=== PATIENT | female | born 2000 | race Caucasian/White ===

== ENCOUNTER 2023-05-06 10:33 | Emergency (ER) | payer MEDICAID ==
--- NOTE | 2023-05-06 10:37 | ERPHSYRPT ---
- History of Present Illness Time Seen by Provider: 05/06/23 10:36 Source: patient Exam Limitations: no limitations Physician History: This is an overweight 22-year-old white female patient of Dr. Che who presents with intermittent coughing over the last 2 weeks. In the last few days her cough has become more constant. It is a moist cough and she states it is produ ctive with yellowish sputum. Patient was seen in [facility] yesterday and she stated that her COVID test was negative. Patient was told she had a viral illness and was given ibuprofen and Tessalon Perles as a cough suppressant. Patient's symptoms have continued to get worse. She does feel her heart racing a bit. Timing/Duration: week(s) (2), intermittent, worse Cough Quality/Degree: mild, productive cough, sputum (#) Possible Cause: no prior episodes Modifying Factors: Improves With: coughing Associated Symptoms: chest pain/soreness, cough (With coughing), sore throat, No shortness of breath Allergies/Adverse Reactions: No Known Drug Allergies Allergy (Verified 05/06/23 10:34) Home Medications: Benzonatate 1 cap PO BID PRN 05/06/23 [History] Clonidine HCl 0.1 mg [Clonidine 0.1 mg Tablet] 0.3 mg PO HS 05/06/23 [History] Semaglutide [Ozempic] 1 mg SQ WEEKLY 05/06/23 [History] Zonisamide [Zonegran] 1 cap PO BID 05/06/23 [History] desogestreL-ethinyl estradioL [Enskyce 28 Tablet] 1 tab PO DAILY 05/06/23 [History] Travel Risk - International Travel Have you traveled outside of the country in past 3 weeks: No - Coronavirus Screening Are you exhibiting any of the following symptoms?: Yes Symptoms: Cough: New Onset Close contact with a COVID-19 positive Pt in past 14-21 Days: No - Review of Systems Constitutional: Fever Eyes: No Symptoms Ears, Nose, & Throat: No Symptoms Respiratory: Cough Cardiac: No Symptoms Abdominal/Gastrointestinal: Nausea, Appetite Changes, No Abdominal Pain, No Vomiting, No Diarrhea, No Constipation Genitourinary Symptoms: No Symptoms Musculoskeletal: No Symptoms Skin: No Symptoms Neurological: No Symptoms Psychological: No Symptoms Endocrine: No Symptoms Hematologic/Lymphatic: No Symptoms Immunological/Allergic: No Symptoms All Other Systems: Reviewed and Negative - Past Medical History Pertinent Past Medical History: Yes - Past Surgical History Past Surgical History: Yes - Nursing Vital Signs Nursing Vital Signs: Initial Vital Signs Temperature 99.8 F 05/06/23 10:33 Pulse Rate 94 H 05/06/23 10:33 Respiratory Rate 20 05/06/23 10:33 Blood Pressure 93/73 05/06/23 10:33 O2 Sat by Pulse Oximetry 98 05/06/23 10:33 Pain Scale Pain Intensity 4 - Physical Exam General Appearance: mild distress, alert, anxiety, obese Eye Exam: PERRL/EOMI, eyes nml inspection Ears, Nose, Throat Exam: normal ENT inspection, moist mucous membranes Neck Exam: normal inspection, non-tender, supple, full range of motion Respiratory Exam: normal breath sounds, lungs clear, airway intact, No chest tenderness, No respiratory distress Cardiovascular Exam: tachycardia Gastrointestinal/Abdomen Exam: soft, normal bowel sounds, No tenderness Pelvic Exam: not done Rectal Exam: not done Back Exam: normal inspection, normal range of motion, No CVA tenderness, No vertebral tenderness Extremity Exam: normal inspection, normal range of motion, pelvis stable Neurologic Exam: alert, oriented x 3, cooperative, warper tender II-XII nml as tested, normal mood/affect, nml cerebellar function, nml station & gait, sensation nml Skin Exam: normal color, warm, diaphoresis Lymphatic Exam: No adenopathy SpO2 Interpretation: normal O2 Delivery: Room Air - Course Nursing assessment & vital signs reviewed: Yes EKG Interpreted by Me: RATE ([id number]), Sinus Tach, NORMAL AXIS, NORMAL INTERVALS, NORMAL QRS, Other (No acute ischemic changes on today's twelve-lead EKG.) Ordered Tests: Active Orders 24 hr Category Date Time Status EKG-ER Only STAT Care 05/06/23 10:58 Active IV Insertion STAT Care 05/06/23 10:58 Active Pulse Oximetry (ED) STAT Care 05/06/23 10:58 Active CHEST 1 VIEW (PORTABLE) Stat Exams 05/06/23 10:58 Completed CHEST WITH CONTRAST [CT] Stat Exams 05/06/23 12:57 Completed BLOOD CULTURE Stat Lab 05/06/23 11:50 Received CBC W DIFF Stat Lab 05/06/23 11:40 Completed CMP Stat Lab 05/06/23 11:40 Completed CULTURE,URINE Stat Lab 05/06/23 11:11 Received D-DIMER QUANTITATIVE Stat Lab 05/06/23 11:40 Completed HCG QUALITATIVE, SERUM Stat Lab 05/06/23 11:40 Completed Lactic Acid Stat Lab 05/06/23 11:09 Completed Lactic Acid Stat Lab 05/06/23 13:16 Received MONO SCREEN Stat Lab 05/06/23 11:40 Completed NT PRO BNPII Stat Lab 05/06/23 12:08 Completed TROPONIN Q4H Lab 05/06/23 12:08 Completed TROPONIN Q4H Lab 05/06/23 16:45 Ordered TROPONIN Q4H Lab 05/06/23 20:45 Ordered UA W/RFX UR CULTURE Stat Lab 05/06/23 11:11 Completed Medication Summary Discontinued Medications Generic Name Dose Route Start Last Admin Trade Name Freq PRN Reason Stop Dose Admin Hydrocodone Bitart/Acetaminophen 10 ml 05/06/23 11:14 05/06/23 11:32 Hydrocodone/Acetaminophen 5 Ml Udcup PO 05/06/23 11:15 10 ml STAT STA Administration Hydrocodone Bitart/Acetaminophen Confirm 05/06/23 11:27 Hydrocodone/Acetaminophen 5 Ml Udcup Administered 05/06/23 11:28 Dose 10 ml .ROUTE .STK-MED ONE Methylprednisolone Sodium 0 mg 05/06/23 11:14 05/06/23 11:29 Succinate 125 mg/ Sterile IV 05/06/23 11:15 125 mg Water 2 ml STAT ONE Administration Sodium Chloride 1,000 mls @ 999 mls/hr 05/06/23 10:58 05/06/23 12:17 Sodium Chloride 0.9% 1000 Ml IV 05/06/23 11:58 Infused .Q1H1M STA Infusion Sodium Chloride Confirm 05/06/23 11:13 Sodium Chloride 0.9% 1000 Ml Administered 05/06/23 11:14 Dose 1,000 mls @ ud .ROUTE .STK-MED ONE Sodium Chloride 1,000 mls @ 999 mls/hr 05/06/23 12:15 05/06/23 13:35 Sodium Chloride 0.9% 1000 Ml IV 05/06/23 13:15 Infused .Q1H1M STA Infusion Sodium Chloride Confirm 05/06/23 12:20 Sodium Chloride 0.9% 1000 Ml Administered 05/06/23 12:21 Dose 1,000 mls @ ud .ROUTE .STK-MED ONE Methylprednisolone Sodium Succinate Confirm 05/06/23 11:26 Methylprednis Sod Succ 125 Mg/2 Ml Vial Administered 05/06/23 11:27 Dose 125 mg .ROUTE .STK-MED ONE Potassium Chloride 20 meq 05/06/23 12:56 05/06/23 13:45 Potassium Chloride Tab 10 Meq Tab PO 05/06/23 12:57 20 meq STAT ONE Administration Potassium Chloride Confirm 05/06/23 13:42 Potassium Chloride Tab 10 Meq Tab Administered 05/06/23 13:43 Dose 20 meq PO .STK-MED ONE Sterile Water Confirm 05/06/23 11:26 Water For Injection,Sterile 10 Ml Vial Administered 05/06/23 11:27 Dose 10 ml IJ .STK-MED ONE Lab/Rad Data: Laboratory Result Diagrams 05/06/23 11:40 05/06/23 11:40 Laboratory Results 05/06/23 05/06/23 05/06/23 Range/Units 12:08 11:56 11:55 WBC (4.0-10.5) x10^3/uL RBC (4.1-5.4) x10^6/uL Hgb (12.0-16.0) g/dL Hct (35-47) % MCV (78-100) fL MCH (26-32) pg MCHC (32-36) g/dL RDW (11.5-14.0) % Plt Count (150-450) x10^3/uL MPV (7.5-11.0) fL Gran % (36.0-66.0) % Immature Gran % (Auto) (0.00-0.4) % Nucleat RBC Rel Count (0.00-0.1) % Eos # (Auto) (0-0.5) x10^3/uL Immature Gran # (Auto) (0.00-0.03) x10^3u/L Absolute Lymphs (auto) (1.0-4.6) x10^3/uL Absolute Monos (auto) (0.0-1.3) x10^3/uL Absolute Nucleated RBC (0.00-0.01) x10^3u/L Lymphocytes % (24.0-44.0) % Monocytes % (0.0-12.0) % Eosinophils % (0.00-5.0) % Basophils % (0.0-0.4) % Absolute Granulocytes (1.4-6.9) x10^3/uL Basophils # (0-0.4) x10^3/uL D-Dimer (0.0-0.50) mg/L Sodium (137-145) mmol/L Potassium (3.5-5.1) mmol/L Chloride (98-107) mmol/L Carbon Dioxide (22-30) mmol/L Anion Gap (5-15) MEQ/L BUN (7-17) mg/dL Creatinine (0.52-1.04) mg/dL Estimated GFR ML/MIN Glucose (74-106) mg/dL Lactic Acid (0.4-2.0) Calcium (8.4-10.2) mg/dL Total Bilirubin (0.2-1.3) mg/dL AST (14-36) U/L ALT (0-35) U/L Alkaline Phosphatase (38-126) U/L Troponin I < 0.012 (0.000-0.034) ng/mL NT-Pro-B Natriuret Pep 50.9 (<300) pg/mL Serum Total Protein (6.3-8.2) g/dL Albumin (3.5-5.0) g/dL Serum HCG, Qual (NEGATIVE) Urine Color (Yellow) Urine Appearance (Clear) Urine pH (4.6-8.0) Ur Specific [place] (1.005-1.030) Urine Protein (Negative) Urine Glucose (UA) (Negative) mg/dL Urine Ketones (Negative) Urine Blood (Negative) Urine Nitrite (Negative) Urine Bilirubin (Negative) Urine Urobilinogen (0.2) mg/dL Ur Leukocyte Esterase (Negative) U Hyaline Cast (Auto) (0-2) /LPF Urine Microscopic RBC (0-5) /HPF Urine Microscopic WBC (0-5) /HPF Ur Epithelial Cells (None Seen) /HPF Urine Bacteria (None Seen) /HPF Urine Culture Reflexed (NO) Monoscreen (NEGATIVE) Influenza Type A Ag POSITIVE (NEGATIVE) Influenza Type B Ag NEGATIVE (NEGATIVE) RSV (PCR) NEGATIVE (NEGATIVE) SARS-CoV-2 (PCR) NEGATIVE (NEGATIVE) Group A Strep Antibody NOT DETECTED (NEGATIVE) 05/06/23 05/06/23 05/06/23 Range/Units 11:40 11:40 11:40 WBC (4.0-10.5) x10^3/uL RBC (4.1-5.4) x10^6/uL Hgb (12.0-16.0) g/dL Hct (35-47) % MCV (78-100) fL MCH (26-32) pg MCHC (32-36) g/dL RDW (11.5-14.0) % Plt Count (150-450) x10^3/uL MPV (7.5-11.0) fL Gran % (36.0-66.0) % Immature Gran % (Auto) (0.00-0.4) % Nucleat RBC Rel Count (0.00-0.1) % Eos # (Auto) (0-0.5) x10^3/uL Immature Gran # (Auto) (0.00-0.03) x10^3u/L Absolute Lymphs (auto) (1.0-4.6) x10^3/uL Absolute Monos (auto) (0.0-1.3) x10^3/uL Absolute Nucleated RBC (0.00-0.01) x10^3u/L Lymphocytes % (24.0-44.0) % Monocytes % (0.0-12.0) % Eosinophils % (0.00-5.0) % Basophils % (0.0-0.4) % Absolute Granulocytes (1.4-6.9) x10^3/uL Basophils # (0-0.4) x10^3/uL D-Dimer 1.24 H* (0.0-0.50) mg/L Sodium 136 L (137-145) mmol/L Potassium 3.1 L (3.5-5.1) mmol/L Chloride 103 (98-107) mmol/L Carbon Dioxide 19 L (22-30) mmol/L Anion Gap 16.7 H (5-15) MEQ/L BUN 9 (7-17) mg/dL Creatinine 0.73 (0.52-1.04) mg/dL Estimated GFR 119.9 ML/MIN Glucose 134 H (74-106) mg/dL Lactic Acid (0.4-2.0) Calcium 9.1 (8.4-10.2) mg/dL Total Bilirubin 0.50 (0.2-1.3) mg/dL AST 28 (14-36) U/L ALT 25 (0-35) U/L Alkaline Phosphatase 86 (38-126) U/L Troponin I (0.000-0.034) ng/mL NT-Pro-B Natriuret Pep (<300) pg/mL Serum Total Protein 8.0 (6.3-8.2) g/dL Albumin 4.2 (3.5-5.0) g/dL Serum HCG, Qual NEGATIVE (NEGATIVE) Urine Color (Yellow) Urine Appearance (Clear) Urine pH (4.6-8.0) Ur Specific [place] (1.005-1.030) Urine Protein (Negative) Urine Glucose (UA) (Negative) mg/dL Urine Ketones (Negative) Urine Blood (Negative) Urine Nitrite (Negative) Urine Bilirubin (Negative) Urine Urobilinogen (0.2) mg/dL Ur Leukocyte Esterase (Negative) U Hyaline Cast (Auto) (0-2) /LPF Urine Microscopic RBC (0-5) /HPF Urine Microscopic WBC (0-5) /HPF Ur Epithelial Cells (None Seen) /HPF Urine Bacteria (None Seen) /HPF Urine Culture Reflexed (NO) Monoscreen POSITIVE A (NEGATIVE) Influenza Type A Ag (NEGATIVE) Influenza Type B Ag (NEGATIVE) RSV (PCR) (NEGATIVE) SARS-CoV-2 (PCR) (NEGATIVE) Group A Strep Antibody (NEGATIVE) 05/06/23 05/06/23 05/06/23 Range/Units 11:40 11:11 11:09 WBC 7.5 (4.0-10.5) x10^3/uL RBC 4.99 (4.1-5.4) x10^6/uL Hgb 13.3 (12.0-16.0) g/dL Hct 40.7 (35-47) % MCV 81.6 (78-100) fL MCH 26.7 (26-32) pg MCHC 32.7 (32-36) g/dL RDW 13.9 (11.5-14.0) % Plt Count 182 (150-450) x10^3/uL MPV 9.4 (7.5-11.0) fL Gran % 74.5 H (36.0-66.0) % Immature Gran % (Auto) 0.3 (0.00-0.4) % Nucleat RBC Rel Count 0.0 (0.00-0.1) % Eos # (Auto) 0 (0-0.5) x10^3/uL Immature Gran # (Auto) 0.02 (0.00-0.03) x10^3u/L Absolute Lymphs (auto) 1.16 (1.0-4.6) x10^3/uL Absolute Monos (auto) 0.72 (0.0-1.3) x10^3/uL Absolute Nucleated RBC 0.00 (0.00-0.01) x10^3u/L Lymphocytes % 15.5 L (24.0-44.0) % Monocytes % 9.6 (0.0-12.0) % Eosinophils % 0.0 (0.00-5.0) % Basophils % 0.1 (0.0-0.4) % Absolute Granulocytes 5.57 (1.4-6.9) x10^3/uL Basophils # 0.01 (0-0.4) x10^3/uL D-Dimer (0.0-0.50) mg/L Sodium (137-145) mmol/L Potassium (3.5-5.1) mmol/L Chloride (98-107) mmol/L Carbon Dioxide (22-30) mmol/L Anion Gap (5-15) MEQ/L BUN (7-17) mg/dL Creatinine (0.52-1.04) mg/dL Estimated GFR ML/MIN Glucose (74-106) mg/dL Lactic Acid 2.8 H (0.4-2.0) Calcium (8.4-10.2) mg/dL Total Bilirubin (0.2-1.3) mg/dL AST (14-36) U/L ALT (0-35) U/L Alkaline Phosphatase (38-126) U/L Troponin I (0.000-0.034) ng/mL NT-Pro-B Natriuret Pep (<300) pg/mL Serum Total Protein (6.3-8.2) g/dL Albumin (3.5-5.0) g/dL Serum HCG, Qual (NEGATIVE) Urine Color Dark Yellow A (Yellow) Urine Appearance Cloudy A (Clear) Urine pH 5.5 (4.6-8.0) Ur Specific [place] >=1.030 A (1.005-1.030) Urine Protein 30 (Negative) Urine Glucose (UA) Negative (Negative) mg/dL Urine Ketones Trace A (Negative) Urine Blood Negative (Negative) Urine Nitrite Negative (Negative) Urine Bilirubin Negative (Negative) Urine Urobilinogen 1.0 A (0.2) mg/dL Ur Leukocyte Esterase Negative (Negative) U Hyaline Cast (Auto) 3-5 A (0-2) /LPF Urine Microscopic RBC 6-10 A (0-5) /HPF Urine Microscopic WBC 6-10 A (0-5) /HPF Ur Epithelial Cells Many A (None Seen) /HPF Urine Bacteria Many A (None Seen) /HPF Urine Culture Reflexed YES (NO) Monoscreen (NEGATIVE) Influenza Type A Ag (NEGATIVE) Influenza Type B Ag (NEGATIVE) RSV (PCR) (NEGATIVE) SARS-CoV-2 (PCR) (NEGATIVE) Group A Strep Antibody (NEGATIVE) - Progress Progress: improved, re-examined Air Movement: good Progress Note: 05/06/23 11:20 This patient's medical issue is 1 of moderate complexity. The level of complexity in the workup performed is based on review of the patient's past medical history, review the patient's medication list, reviewed patient's drug allergy list, history of present illness and physical findings on examination. This patient's medical workup includes placement of intravenous line, infusion of normal saline solution, infusion of Zofran 4 mg, infusion of Solu-Medrol 125 mg, hydrocodone elixir to help suppress her cough, CBC, CMP, repeat viral swabs, monotest and group A strep test. Will also perform a chest x-ray and obtain a urinalysis. We also have a D-dimer to drawn. 05/06/23 11:31 Chest x-ray was interpreted by the radiologist and I reviewed the impression. There is no evidence of any acute cardiopulmonary process. 05/06/23 14:50 CT scan of the chest with contrast was interpreted by the radiologist. I reviewed the impression. The impression states suboptimal test secondary to IV infiltration of contrast. Radiologist states in his impression that there is no obvious pulmonary embolus. No other acute cardio or pulmonary process present 05/06/23 14:56 Obtained clarification from our radiologist, Dr. Dudley, he states that although this test was suboptimal he can confidently say there is no obvious pulmonary embolus with the contrast that did reach the site. There is no need to repeat the study Blood Culture(s) Obtained: Yes Counseled pt/family regarding: lab results, diagnosis, rad results Medical Desision Making - Diagnostic Testing Diagnostic test were ordered, analyzed, and reviewed by me: Yes Radiological Interpretation: Reviewed by me, Teleradiologist Report - Risk of complications The pt has a mod risk of morbidity or mortality based on: Need for prescription drug management - Departure Departure Disposition: Home Clinical Impression: Mononucleosis, Influenza A H1N1 infection Condition: Stable Critical Care Time: No Referrals: SANNA CHE MD [Primary Care Provider] - Follow up/PCP as directed Additional Instructions: Drink plenty of fluids before advancing the diet. Add ibuprofen 600 mg orally 3 times a day with food for the next 3 to 4 days to help with aches and pain control. Take your medications as prescribed. Prescriptions: Hydrocodone/Acetaminophen [Hydrocodone-Acetamn 7.5-325/15] 10 ml PO Q8H PRN #120 ml MDD 30 ml PRN Reason: Cough
[2023-05-06] MEDS ORDERED: Sodium Chloride 0.9% 1000 ML 1,000 ML IV STA ×2 (10:58→12:15)
[2023-05-06] MEDS ORDERED: Sodium Chloride 0.9% 1000 ML 1,000 ML ONE ×2 (11:13→12:20)
[2023-05-06] MEDS ORDERED: solu-MEDROL 125 MG, Sterile H2O 10 ml 2 ML IV ONE ×2 (11:14)
[2023-05-06] MEDS ORDERED: HYDROCODONE-ACETAMIN 2.5-108/5 ML SOLUTION PO STA (11:14)
--- NOTE | 2023-05-06 11:21 | XRAY ---
Indication: Cough 2 weeks. Comparison: None Portable chest demonstrates normal heart, lungs, bony thorax.
[2023-05-06] MEDS ORDERED: solu-MEDROL ONE (11:26)
[2023-05-06] MEDS ORDERED: Sterile H2O 10 ml IJ ONE (11:26)
[2023-05-06] MEDS ORDERED: HYDROCODONE-ACETAMIN 2.5-108/5 ML SOLUTION ONE (11:27)
[2023-05-06 11:56] LABS: Appearance Cloudy (Clear); Bacteria Many /HPF (None Seen); Bilirubin Negative (Negative); Blood Negative (Negative); Glucose, Urine Negative (Negative); Ketones Trace (Negative); Leukocyte Esterase Negative (Negative); Nitrite Negative (Negative); Ph 5.5 (4.6-8.0); Protein,Urine Dip 30 (Negative); Specific Gravity >=1.030 (1.005-1.030)
[2023-05-06 11:58] LABS: Epithelial Cells Many /HPF (None Seen)
[2023-05-06 11:59] LABS: ADD URINE CULTURE? YES (NO)
[2023-05-06 12:01] LABS: Absolute Neutrophil Ct (ANC) 5.57 x10^3/uL (1.4-6.9); BASOPHIL % 0.1 % (0.0-0.4); Basophil (Absolute #) 0.01 x10^3/uL (0-0.4); Eosinophil (Absolute #) 0 x10^3/uL (0-0.5); Hematocrit 40.7 % (35-47); Hemoglobin 13.3 g/dL (12.0-16.0); IMMATURE GRAN # 0.02 x10^3u/L (0.00-0.03); IMMATURE GRAN % 0.3 % (0.00-0.4); Lymphocyte (Absolute #) 1.16 x10^3/uL (1.0-4.6); Lymphocytes % 15.5 % (24.0-44.0); Mean Cell Volume 81.6 fL (78-100); Mean Corpuscular Hemoglobin 26.7 pg (26-32); Mean Corpuscular Hgb Concent. 32.7 g/dL (32-36); Mean Platelet Volume 9.4 fL (7.5-11.0); Monocyte (Absolute #) 0.72 x10^3/uL (0.0-1.3); Monocytes % 9.6 % (0.0-12.0); Neutrophil % 74.5 % (36.0-66.0); Platelet Count 182 x10^3/uL (150-450); Red Blood Count 4.99 x10^6/uL (4.1-5.4); Red Cell Distribution Width 13.9 % (11.5-14.0); White Blood Count 7.5 x10^3/uL (4.0-10.5)
[2023-05-06 12:10] LABS: ALBUMIN 4.2 g/dL (3.5-5.0); ANION GAP 16.7 MEQ/L (5-15); BILIRUBIN,TOTAL 0.5 mg/dL (0.2-1.3); Calcium 9.1 mg/dL (8.4-10.2); Creatinine 1 0.73 mg/dL (0.52-1.04); EST GLOMERULAR FILTRATION RATE 119.9 ML/MIN; Potassium 3.1 mmol/L (3.5-5.1)
[2023-05-06 12:18] LABS: HCG SERUM TEST NEGATIVE (NEGATIVE)
[2023-05-06 12:25] VITALS: TEMP 97.4
[2023-05-06 12:33] VITALS: O2SAT 97
[2023-05-06 12:44] LABS: INFLUENZA B NEGATIVE (NEGATIVE); RESPIRATORY SYNCTIAL VIRUS NEGATIVE (NEGATIVE); SARS-CoV-2 Xpert Express NEGATIVE (NEGATIVE)
[2023-05-06 12:46] LABS: INFLUENZA A POSITIVE (NEGATIVE)
[2023-05-06] MEDS ORDERED: Klor Con PO ONE ×2 (12:56→13:42)
[2023-05-06 13:09] LABS: NT PRO BNPII 50.9 pg/mL (<300); TROPONIN < 0.012 ng/mL (0.000-0.034)
[2023-05-06 14:01] VITALS: RESP 20
--- NOTE | 2023-05-06 14:04 | XRAY ---
Indication: Chest pain and cough. Elevated d-dimer. Multiple contiguous axial images obtained through the chest using 80 cc Isovue 370 contrast and PE protocol. Comparison: None Suboptimal opacification of the pulmonary arteries limits evaluation for pulmonary embolus. No obvious pulmonary embolus. Heart is not enlarged. Aorta is normal in course and caliber. No pathologic mediastinal/hilar lymphadenopathy. Lungs inflated and clear. Bony thorax intact. Limited upper abdomen unremarkable. Impression: 1. Pulmonary embolus evaluation limited due to suboptimal contrast opacification. dairy manufacturing technologist reports IV site infiltrated during injection. No obvious pulmonary embolus. 2. Remaining CT chest with contrast exam is normal.
[2023-05-06 15:03] VITALS: BP 108/69; PULSE 85
== END 2023-05-06 15:09 | disposition home or self-care (01) ==
LOC: ED 10:33
DX: B27.90 Infectious mononucleosis, unspecified without complication (principal); J10.1 Influenza due to other identified influenza virus with other respiratory manifestations; R05.1 Acute cough; R09.3 Abnormal sputum; Z79.85 Long-term (current) use of injectable non-insulin antidiabetic drugs; Z79.891 Long term (current) use of opiate analgesic; Z79.899 Other long term (current) drug therapy
CPT/HCPCS: 0241U; 36000; 36415; 71045; 71260; 80053; 81001; 83605; 83880; 84484; 84703; 85025; 85379; 86308; 87040; 87086; 87651; 93005; 94760; 96374; 99284; J2930; A9270-GY

== ENCOUNTER 2023-06-29 04:10 | Emergency (ER) | payer MEDICAID ==
[2023-06-29 04:37] VITALS: TEMP 97.3
[2023-06-29 04:57] LABS: HCG URINE TEST NEGATIVE (NEGATIVE)
--- NOTE | 2023-06-29 04:59 | ERPHSYRPT ---
- History of Present Illness Time Seen by Provider: 06/29/23 04:40 Historian: patient Exam Limitations: no limitations Patient Subjective Stated Complaint: pt states that at approx 2000 last night she started having epigastric abdominal pain that is intermittent (very freq uent), described as burning/ cramping, and radiates slightly to right flank. reports LBM 06/27/23 and was "black" in color. Triage Nursing Assessment: pt ambulated into room 7 independently with slow steady gait after standing on scales for weight acquisition and to bathroom to provide a urine specimen for lab testing. pt is alert and oriented times three, able to speak in complete sentences, able to move all extremities, and with resp even and unlabored. skin is warm, pink, dry, and intact. abd is obese, soft, nontender to palpation, nondistended, and with positive bowel sounds in all quadrants. pt with history of GERD and Crohn's but reports this pain is different from those. pt scheduled to have a CT scan later today in [place] per her GI MD. denies n/v, diarrhea, cp, sob, difficulty breathing, lightheadedness, dizziness, difficulty with urination or bowel elimination with exception of last stool being "black" in color. Physician History: 22yo f presents for abdominal pain that started 8hrs prior to presentation. Pt states she has had epigastric pain intermittently for the past 6 months, states it started around 8pm and has been worse than her baseline pain which is why she came to the ED. Pt reports associated nausea but denies vomiting or diarrhea. Pt does report 1 episode of dark stool 2d ago but otherwise has had no abnormal stools. Pt has been seeing GI specialist and was supposed to have a CT done at [place] today for w/u of this abdominal pain. Pt has hx of Crohn's disease, is currently taking injectable GLP-1 medication. Pt denies cp, soa, GARG, fevers, recent sick contacts. Timing/Duration: yesterday, hour(s) (8), constant, gradual onset Activities at Onset: none Quality: burning Abdominal Pain Onset Location: epigastric Pain Radiation: no radiation Severity of Pain-Max: moderate Severity of Pain-Current: moderate Modifying Factors: Improves With: nothing Associated Symptoms: denies symptoms Previous symptoms: same symptoms as today Body Map: 1 - epigastric pain Allergies/Adverse Reactions: No Known Drug Allergies Allergy (Verified 06/29/23 04:17) Home Medications: Clonidine HCl 0.1 mg [Clonidine 0.1 mg Tablet] 0.3 mg PO HS 05/06/23 [History] Semaglutide [Ozempic] 1 mg SQ WEEKLY 05/06/23 [History] Zonisamide [Zonegran] 1 cap PO BID 05/06/23 [History] desogestreL-ethinyl estradioL [Enskyce 28 Tablet] 1 tab PO DAILY 05/06/23 [History] Sertraline HCl 100 mg PO HS 06/29/23 [History] Hx Tetanus, Diphtheria Vaccination/Date Given: Yes Hx Influenza Vaccination/Date Given: No Hx Pneumococcal Vaccination/Date Given: No Immunizations Up to Date: Yes Travel Risk - International Travel Have you traveled outside of the country in past 3 weeks: No - Coronavirus Screening Are you exhibiting any of the following symptoms?: No Close contact with a COVID-19 positive Pt in past 14-21 Days: No - Vaccine Status Have you recieved a Covid-19 vaccination: No - Review of Systems Constitutional: No Symptoms Respiratory: No Symptoms Cardiac: No Symptoms Abdominal/Gastrointestinal: Abdominal Pain, Nausea, No Vomiting, No Diarrhea, No Constipation, No Hematemesis, No Hematochezia, No Melena, No Appetite Changes Genitourinary Symptoms: No Symptoms, No Dysuria, No Frequency, No Hematuria, No Flank Pain - Past Medical History Pertinent Past Medical History: Yes Neurological History: No Pertinent History ENT History: No Pertinent History Cardiac History: No Pertinent History Respiratory History: No Pertinent History Endocrine Medical History: No Pertinent History Musculoskeletal History: No Pertinent History GI Medical History: Crohns Disease, GERD History: No Pertinent History Psycho-Social History: Depression, Other Female Reproductive Disorders: No Pertinent History Other Medical History: GI specialist in [place]. ADHD. Prediabetic - Past Surgical History Past Surgical History: Yes Neuro Surgical History: No Pertinent History Cardiac: No Pertinent History Respiratory: No Pertinent History Gastrointestinal: No Pertinent History Genitourinary: No Pertinent History Musculoskeletal: No Pertinent History Female Surgical History: No Pertinent History Other Surgical History: Toe surgery - Social History Smoking Status: Former smoker Exposure to second hand smoke: No Drug Use: none Patient Lives Alone: No - Female History Hx Last Menstrual Period: 06/17/23 Hx Now: No - Nursing Vital Signs Nursing Vital Signs: Initial Vital Signs Pulse Rate 81 06/29/23 04:20 Respiratory Rate 18 06/29/23 04:20 Blood Pressure 127/82 06/29/23 04:20 O2 Sat by Pulse Oximetry 97 06/29/23 04:20 Pain Scale Pain Intensity 4 - Physical Exam General Appearance: no apparent distress, alert Respiratory Exam: normal breath sounds, lungs clear, No respiratory distress Cardiovascular Exam: regular rate/rhythm, normal heart sounds, normal peripheral pulses Gastrointestinal/Abdomen Exam: soft, normal bowel sounds, No tenderness, No distention, No guarding, No rebound SpO2 Interpretation: normal SpO2: 96 O2 Delivery: Room Air Ordered Tests: Active Orders 24 hr Category Date Time Status IV Insertion STAT Care 06/29/23 04:47 Active ABDOMEN AND PELVIS W CONTRAST [CT] Stat Exams 06/29/23 04:48 Completed CBC W DIFF Stat Lab 06/29/23 05:00 Completed CMP Stat Lab 06/29/23 05:00 Completed CULTURE,URINE Stat Lab 06/29/23 04:52 Received HCG QUALITATIVE, URINE Stat Lab 06/29/23 04:30 Completed LIPASE Stat Lab 06/29/23 05:00 Completed UA W/RFX UR CULTURE Stat Lab 06/29/23 04:52 Completed Medication Summary Discontinued Medications Generic Name Dose Route Start Last Admin Trade Name Freq PRN Reason Stop Dose Admin Sodium Chloride 1,000 mls @ 999 mls/hr 06/29/23 04:47 06/29/23 06:10 Sodium Chloride 0.9% 1000 Ml IV 06/29/23 05:47 Infused .Q1H1M STA Infusion Sodium Chloride Confirm 06/29/23 05:02 Sodium Chloride 0.9% 1000 Ml Administered 06/29/23 05:03 Dose 1,000 mls @ ud .ROUTE .STK-MED ONE Morphine Sulfate 2 mg 06/29/23 04:47 06/29/23 05:06 Morphine Sulfate 2 Mg/Ml Inj IV 06/29/23 04:48 2 mg STAT ONE Administration Morphine Sulfate Confirm 06/29/23 05:02 Morphine Sulfate 2 Mg/Ml Inj Administered 06/29/23 05:03 Dose 2 mg .ROUTE .STK-MED ONE Ondansetron HCl 4 mg 06/29/23 04:47 06/29/23 05:06 Ondansetron Hcl 4 Mg/2 Ml Vial IV 06/29/23 04:48 4 mg STAT ONE Administration Ondansetron HCl Confirm 06/29/23 05:02 Ondansetron Hcl 4 Mg/2 Ml Vial Administered 06/29/23 05:03 Dose 4 mg .ROUTE .STK-MED ONE Lab/Rad Data: Laboratory Result Diagrams 06/29/23 05:00 06/29/23 05:00 Laboratory Results 06/29/23 06/29/23 06/29/23 Range/Units 05:00 05:00 04:52 WBC 8.9 (4.0-10.5) x10^3/uL RBC 4.58 (4.1-5.4) x10^6/uL Hgb 12.1 (12.0-16.0) g/dL Hct 37.4 (35-47) % MCV 81.7 (78-100) fL MCH 26.4 (26-32) pg MCHC 32.4 (32-36) g/dL RDW 13.5 (11.5-14.0) % Plt Count 200 (150-450) x10^3/uL MPV 9.1 (7.5-11.0) fL Gran % 68.8 H (36.0-66.0) % Immature Gran % (Auto) 0.2 (0.00-0.4) % Nucleat RBC Rel Count 0.0 (0.00-0.1) % Eos # (Auto) 0.08 (0-0.5) x10^3/uL Immature Gran # (Auto) 0.02 (0.00-0.03) x10^3u/L Absolute Lymphs (auto) 2.02 (1.0-4.6) x10^3/uL Absolute Monos (auto) 0.63 (0.0-1.3) x10^3/uL Absolute Nucleated RBC 0.00 (0.00-0.01) x10^3u/L Lymphocytes % 22.6 L (24.0-44.0) % Monocytes % 7.1 (0.0-12.0) % Eosinophils % 0.9 (0.00-5.0) % Basophils % 0.4 (0.0-0.4) % Absolute Granulocytes 6.13 (1.4-6.9) x10^3/uL Basophils # 0.04 (0-0.4) x10^3/uL Sodium 133 L (137-145) mmol/L Potassium 3.6 (3.5-5.1) mmol/L Chloride 103 (98-107) mmol/L Carbon Dioxide 22 (22-30) mmol/L Anion Gap 11.8 (5-15) MEQ/L BUN 12 (7-17) mg/dL Creatinine 0.70 (0.52-1.04) mg/dL Estimated GFR 126.1 ML/MIN Glucose 116 H (74-106) mg/dL Calcium 9.7 (8.4-10.2) mg/dL Total Bilirubin 0.50 (0.2-1.3) mg/dL AST 22 (14-36) U/L ALT 18 (0-35) U/L Alkaline Phosphatase 69 (38-126) U/L Serum Total Protein 7.4 (6.3-8.2) g/dL Albumin 4.1 (3.5-5.0) g/dL Lipase 118 (23-300) U/L Urine Color Yellow (Yellow) Urine Appearance Cloudy A (Clear) Urine pH 6.5 (4.6-8.0) Ur Specific [place] 1.015 (1.005-1.030) Urine Protein Negative (Negative) Urine Glucose (UA) Negative (Negative) mg/dL Urine Ketones Negative (Negative) Urine Blood Negative (Negative) Urine Nitrite Negative (Negative) Urine Bilirubin Negative (Negative) Urine Urobilinogen 0.2 (0.2) mg/dL Ur Leukocyte Esterase Trace A (Negative) U Hyaline Cast (Auto) NONE SEEN (0-2) /LPF Urine Microscopic RBC 0-2 (0-5) /HPF Urine Microscopic WBC 6-10 A (0-5) /HPF Ur Epithelial Cells Few (None Seen) /HPF Urine Bacteria Few A (None Seen) /HPF Urine Culture Reflexed YES (NO) Urine HCG, Qual (NEGATIVE) 06/29/23 Range/Units 04:30 WBC (4.0-10.5) x10^3/uL RBC (4.1-5.4) x10^6/uL Hgb (12.0-16.0) g/dL Hct (35-47) % MCV (78-100) fL MCH (26-32) pg MCHC (32-36) g/dL RDW (11.5-14.0) % Plt Count (150-450) x10^3/uL MPV (7.5-11.0) fL Gran % (36.0-66.0) % Immature Gran % (Auto) (0.00-0.4) % Nucleat RBC Rel Count (0.00-0.1) % Eos # (Auto) (0-0.5) x10^3/uL Immature Gran # (Auto) (0.00-0.03) x10^3u/L Absolute Lymphs (auto) (1.0-4.6) x10^3/uL Absolute Monos (auto) (0.0-1.3) x10^3/uL Absolute Nucleated RBC (0.00-0.01) x10^3u/L Lymphocytes % (24.0-44.0) % Monocytes % (0.0-12.0) % Eosinophils % (0.00-5.0) % Basophils % (0.0-0.4) % Absolute Granulocytes (1.4-6.9) x10^3/uL Basophils # (0-0.4) x10^3/uL Sodium (137-145) mmol/L Potassium (3.5-5.1) mmol/L Chloride (98-107) mmol/L Carbon Dioxide (22-30) mmol/L Anion Gap (5-15) MEQ/L BUN (7-17) mg/dL Creatinine (0.52-1.04) mg/dL Estimated GFR ML/MIN Glucose (74-106) mg/dL Calcium (8.4-10.2) mg/dL Total Bilirubin (0.2-1.3) mg/dL AST (14-36) U/L ALT (0-35) U/L Alkaline Phosphatase (38-126) U/L Serum Total Protein (6.3-8.2) g/dL Albumin (3.5-5.0) g/dL Lipase (23-300) U/L Urine Color (Yellow) Urine Appearance (Clear) Urine pH (4.6-8.0) Ur Specific [place] (1.005-1.030) Urine Protein (Negative) Urine Glucose (UA) (Negative) mg/dL Urine Ketones (Negative) Urine Blood (Negative) Urine Nitrite (Negative) Urine Bilirubin (Negative) Urine Urobilinogen (0.2) mg/dL Ur Leukocyte Esterase (Negative) U Hyaline Cast (Auto) (0-2) /LPF Urine Microscopic RBC (0-5) /HPF Urine Microscopic WBC (0-5) /HPF Ur Epithelial Cells (None Seen) /HPF Urine Bacteria (None Seen) /HPF Urine Culture Reflexed (NO) Urine HCG, Qual NEGATIVE (NEGATIVE) - Progress Progress: improved Progress Note: 06/29/23 05:02 pt given 2mg morpine IV, 4mg zofran 06/29/23 06:11 pt resting comfortably, pain significantly improved CT results pending, labs grossly normal 06/29/23 06:15 CT showed: No significant abnormality was detected in CT Abdomen and pelvis examination 06/29/23 06:15 Plan for dc home w/ close PCP f/u, recommend pt does not obtain scheduled CT scan that was planned for today, should keep f/u w/ GI Counseled pt/family regarding: lab results, diagnosis, need for follow-up, rad results Medical Desision Making - Diagnostic Testing Diagnostic test were ordered, analyzed, and reviewed by me: Yes Radiological Interpretation: Reviewed by me, Teleradiologist Report - Risk of complications Minimal Risk: Minimal risk of morbidity - Departure Departure Disposition: Extended Care Facility Clinical Impression: Epigastric pain, Nausea Condition: Stable Critical Care Time: No Referrals: SANNA CHE MD [Primary Care Provider] - Follow up/PCP as directed Additional Instructions: manage symptoms w/ tylenol, antacids as needed follow up w/ PCP this week Do not recommend obtaining CT today at [place] Keep follow up appointment with GI doc return to ED if - sx worsen, unable to tolerate oral intake, have bloody vomit or stools
[2023-06-29 05:01] LABS: Appearance Cloudy (Clear); Bacteria Few /HPF (None Seen); Bilirubin Negative (Negative); Blood Negative (Negative); Epithelial Cells Few /HPF (None Seen); Glucose, Urine Negative (Negative); Hyaline Casts NONE SEEN /LPF (0-2); Ketones Negative (Negative); Leukocyte Esterase Trace (Negative); Nitrite Negative (Negative); Ph 6.5 (4.6-8.0); Protein,Urine Dip Negative (Negative); RBC 0-2 /HPF (0-5); Specific Gravity 1.015 (1.005-1.030); Urobilinogen 0.2 mg/dL (0.2)
[2023-06-29 05:02] LABS: ADD URINE CULTURE? YES (NO)
[2023-06-29] MEDS ORDERED: Zofran 4 MG/2 ML VIAL ONE (05:02)
[2023-06-29] MEDS ORDERED: MORPHINE SULFATE 2 MG INJ ONE (05:02)
[2023-06-29] MEDS ORDERED: Sodium Chloride 0.9% 1000 ML 1,000 ML ONE (05:02)
[2023-06-29 05:04] LABS: Absolute Neutrophil Ct (ANC) 6.13 x10^3/uL (1.4-6.9); BASOPHIL % 0.4 % (0.0-0.4); Basophil (Absolute #) 0.04 x10^3/uL (0-0.4); Eosinophil % 0.9 % (0.00-5.0); Eosinophil (Absolute #) 0.08 x10^3/uL (0-0.5); Hematocrit 37.4 % (35-47); Hemoglobin 12.1 g/dL (12.0-16.0); IMMATURE GRAN # 0.02 x10^3u/L (0.00-0.03); IMMATURE GRAN % 0.2 % (0.00-0.4); Lymphocyte (Absolute #) 2.02 x10^3/uL (1.0-4.6); Lymphocytes % 22.6 % (24.0-44.0); Mean Cell Volume 81.7 fL (78-100); Mean Corpuscular Hemoglobin 26.4 pg (26-32); Mean Corpuscular Hgb Concent. 32.4 g/dL (32-36); Mean Platelet Volume 9.1 fL (7.5-11.0); Monocyte (Absolute #) 0.63 x10^3/uL (0.0-1.3); Monocytes % 7.1 % (0.0-12.0); Neutrophil % 68.8 % (36.0-66.0); Platelet Count 200 x10^3/uL (150-450); Red Blood Count 4.58 x10^6/uL (4.1-5.4); Red Cell Distribution Width 13.5 % (11.5-14.0); White Blood Count 8.9 x10^3/uL (4.0-10.5)
[2023-06-29] MEDS: Zofran 4 MG/2 ML VIAL IV ONE (05:06)
[2023-06-29] MEDS: MORPHINE SULFATE 2 MG INJ IV ONE (05:06)
[2023-06-29] MEDS: Sodium Chloride 0.9% 1000 ML 1,000 ML IV STA (05:07)
[2023-06-29 05:18] LABS: ALBUMIN 4.1 g/dL (3.5-5.0); ANION GAP 11.8 MEQ/L (5-15); BILIRUBIN,TOTAL 0.5 mg/dL (0.2-1.3); Calcium 9.7 mg/dL (8.4-10.2); Creatinine 1 0.7 mg/dL (0.52-1.04); EST GLOMERULAR FILTRATION RATE 126.1 ML/MIN; Potassium 3.6 mmol/L (3.5-5.1); Total Protein 7.4 g/dL (6.3-8.2)
--- NOTE | 2023-06-29 06:10 | XRAY ---
CLINICAL HISTORY: abdominal pain TECHNIQUE: Multiple axial sections of CT scan of abdomen and pelvis were obtained with IV contrast administration. Coronal and sagittal reconstructions were also obtained. COMPARISON: None. FINDINGS: Liver is normal in size. No focal mass seen. Intra and extra hepatic biliary ducts are not dilated. Portal vein show normal opacification. No evidence of portal venous thrombosis. Gallbladder appears normal. No evidence of radio-opaque calculus, wall thickening or pericholecystic fluid. Spleen appears normal. No evidence of focal mass seen. Pancreas appears normal. No evidence of mass lesion noted. Both adrenal glands appear normal. No discrete lesion noted. Both kidneys are enhancing normally. No evidence of focal mass, calculus or hydronephrosis noted. Urinary bladder is smooth in outline, without evidence of wall thickening, vesical calculus or intraluminal mass. Uterus and bilateral adnexa appears unremarkable. The appendix is unremarkable. Small and large bowel loops grossly appear normal. No abnormal wall thickness or dilatation noted. No significant lymphadenopathy seen. Abdominal and pelvic vasculature show normal enhancement. No evidence of ascites or mesenteric fat stranding noted. On appropriate lung window settings, bases of lungs appear unremarkable. On bone window settings, no significant bony abnormality noted. IMPRESSION: No significant abnormality was detected in CT Abdomen and pelvis examination. Electronically Signed by: Elizabeth Nguyen MD. (06/29/2023 06:05:59 EST)
[2023-06-29 06:49] VITALS: BP 108/72; PULSE 78; RESP 16; O2SAT 99
== END 2023-06-29 06:47 | disposition home or self-care (01) ==
LOC: ED 04:10
DX: R10.13 Epigastric pain (principal); R11.0 Nausea; Z79.84 Long term (current) use of oral hypoglycemic drugs; Z79.899 Other long term (current) drug therapy; Z28.310 Unvaccinated for COVID-19
CPT/HCPCS: 36000; 36415; 74177; 80053; 81001; 81025; 83690; 85025; 87086; 96360; 96374; 96375; 99284; J2270; J2405

== ENCOUNTER 2023-08-27 14:53 | Emergency (ER) | payer MEDICAID ==
[2023-08-27 15:28] VITALS: TEMP 97.5
--- NOTE | 2023-08-27 15:40 | ERPHSYRPT ---
- History of Present Illness Time Seen by Provider: 08/27/23 15:32 Historian: patient Exam Limitations: no limitations Patient Subjective Stated Complaint: Pt c/o of upper left quadrant pain, more laterally, for the past 4 days, hurts to take a deep breath, hurts on the left when she lays down on the right Triage Nursing Assessment: Pt brought self to the ER, hypertensive, rates pain as 6/10, laying on back does make it feel somewhat better, pulses normal, skin n/w/d, on menses now, last BM was yesterday and states that it was normal, last intake today, denies N&V, doesn't appear to be in any distress Physician History: For the past 4 days pt has had LUQ abdominal pain up to 6/10 in severity; chills yesterday. LBM was yesterday & wnl. Pt denies chest pain, shortness of air, fever, cough, trauma. Allergies/Adverse Reactions: Penicillins Allergy (Verified 08/27/23 15:29) Home Medications: Clonidine HCl 0.1 mg [Clonidine 0.1 mg Tablet] 0.3 mg PO HS 05/06/23 [History] Semaglutide [Ozempic] 1 mg SQ WEEKLY 05/06/23 [History] Zonisamide [Zonegran] 1 cap PO BID 05/06/23 [History] desogestreL-ethinyl estradioL [Enskyce 28 Tablet] 1 tab PO DAILY 05/06/23 [History] Sertraline HCl 100 mg PO HS 06/29/23 [History] Hx Tetanus, Diphtheria Vaccination/Date Given: Yes Hx Influenza Vaccination/Date Given: No Hx Pneumococcal Vaccination/Date Given: No Travel Risk - International Travel Have you traveled outside of the country in past 3 weeks: No - Emerging Infectious Disease Are you exhibiting symptoms associated with any current EIDs: Yes Symptoms: Abdominal Pain - Review of Systems Constitutional: Chills, No Fever Respiratory: No Cough, No Dyspnea Cardiac: No Chest Pain Abdominal/Gastrointestinal: Abdominal Pain, No Nausea, No Vomiting, No Diarrhea - Past Medical History Pertinent Past Medical History: Yes Neurological History: No Pertinent History ENT History: No Pertinent History Cardiac History: No Pertinent History Respiratory History: No Pertinent History Endocrine Medical History: No Pertinent History Musculoskeletal History: No Pertinent History GI Medical History: Crohns Disease, GERD History: No Pertinent History Psycho-Social History: Depression, Other Female Reproductive Disorders: No Pertinent History Other Medical History: GI specialist in [place]. ADHD. Prediabetic - Past Surgical History Past Surgical History: Yes Neuro Surgical History: No Pertinent History Cardiac: No Pertinent History Respiratory: No Pertinent History Gastrointestinal: No Pertinent History Genitourinary: No Pertinent History Musculoskeletal: No Pertinent History Female Surgical History: No Pertinent History Other Surgical History: Toe surgery - Female History Hx Last Menstrual Period: now Hx Now: No - Social History Smoking Status: Former smoker Exposure to second hand smoke: No Drug Use: none Patient Lives Alone: No - Nursing Vital Signs Nursing Vital Signs: Initial Vital Signs Temperature 97.5 F 08/27/23 15:16 Pulse Rate 86 08/27/23 15:16 Blood Pressure 145/109 08/27/23 15:16 O2 Sat by Pulse Oximetry 98 08/27/23 15:16 Pain Scale Pain Intensity 4 - Physical Exam General Appearance: alert Eye Exam: PERRL/EOMI Ears, Nose, Throat Exam: TMs normal, pharyngeal erythema Neck Exam: normal inspection Respiratory Exam: lungs clear Cardiovascular Exam: normal heart sounds Gastrointestinal/Abdomen Exam: soft, normal bowel sounds, No tenderness Back Exam: normal inspection Extremity Exam: No pedal edema Neurologic Exam: alert, cooperative Skin Exam: warm, dry SpO2 Interpretation: normal SpO2: 98 O2 Delivery: Room Air - Course Nursing assessment & vital signs reviewed: Yes - CT Exams Abdomen/Pelvis CT Interpretation: Tele-radiologist Report (Tiny nonobstructing left kidney s tone of 3mm. The rest of the abdomen is unremarkable.) Ordered Tests: Active Orders 24 hr Category Date Time Status IV Insertion STAT Care 08/27/23 15:42 Active ABDOMEN AND PELVIS W/0 CONTRAS [CT] Stat Exams 08/27/23 15:43 Completed AMYLASE Stat Lab 08/27/23 15:15 Completed CBC W DIFF Stat Lab 08/27/23 15:15 Completed CMP Stat Lab 08/27/23 15:15 Completed HCG QUALITATIVE, SERUM Stat Lab 08/27/23 15:15 Completed LIPASE Stat Lab 08/27/23 15:15 Completed MONO SCREEN Stat Lab 08/27/23 15:15 Completed UA W/RFX UR CULTURE Stat Lab 08/27/23 15:57 Completed Medication Summary Generic Name Dose Route Start Last Admin Trade Name Freq PRN Reason Stop Dose Admin Sodium Chloride 1,000 mls @ 100 mls/hr 08/27/23 15:45 08/27/23 16:00 Sodium Chloride 0.9% 1000 Ml IV 09/26/23 15:44 100 mls/hr .Q10H INÉS Administration Discontinued Medications Generic Name Dose Route Start Last Admin Trade Name Cris PRN Reason Stop Dose Admin Morphine Sulfate 2 mg 08/27/23 15:42 08/27/23 16:00 Morphine Sulfate 2 Mg/Ml Inj IV 08/27/23 15:43 2 mg STAT ONE Administration Morphine Sulfate Confirm 08/27/23 15:58 Morphine Sulfate 2 Mg/Ml Inj Administered 08/27/23 15:59 Dose 2 mg .ROUTE .STK-MED ONE Ondansetron HCl 4 mg 08/27/23 15:42 08/27/23 16:00 Ondansetron Hcl 4 Mg/2 Ml Vial IV 08/27/23 15:43 4 mg STAT ONE Administration Ondansetron HCl Confirm 08/27/23 15:58 Ondansetron Hcl 4 Mg/2 Ml Vial Administered 08/27/23 15:59 Dose 4 mg .ROUTE .STK-MED ONE Lab/Rad Data: Laboratory Result Diagrams 08/27/23 15:15 08/27/23 15:15 Laboratory Results 08/27/23 08/27/23 08/27/23 Range/Units 16:15 15:57 15:45 WBC (4.0-10.5) x10^3/uL RBC (4.1-5.4) x10^6/uL Hgb (12.0-16.0) g/dL Hct (35-47) % MCV (78-100) fL MCH (26-32) pg MCHC (32-36) g/dL RDW (11.5-14.0) % Plt Count (150-450) x10^3/uL MPV (7.5-11.0) fL Gran % (36.0-66.0) % Immature Gran % (Auto) (0.00-0.4) % Nucleat RBC Rel Count (0.00-0.1) % Eos # (Auto) (0-0.5) x10^3/uL Immature Gran # (Auto) (0.00-0.03) x10^3u/L Absolute Lymphs (auto) (1.0-4.6) x10^3/uL Absolute Monos (auto) (0.0-1.3) x10^3/uL Absolute Nucleated RBC (0.00-0.01) x10^3u/L Lymphocytes % (24.0-44.0) % Monocytes % (0.0-12.0) % Eosinophils % (0.00-5.0) % Basophils % (0.0-0.4) % Absolute Granulocytes (1.4-6.9) x10^3/uL Basophils # (0-0.4) x10^3/uL Sodium (135-145) mmol/L Potassium (3.5-5.1) mmol/L Chloride (98-107) mmol/L Carbon Dioxide (22-30) mmol/L Anion Gap (5-15) MEQ/L BUN (7-17) mg/dL Creatinine (0.52-1.04) mg/dL Estimated GFR ML/MIN Glucose (74-106) mg/dL Calcium (8.4-10.2) mg/dL Total Bilirubin (0.2-1.3) mg/dL AST (14-36) U/L ALT (0-35) U/L Alkaline Phosphatase (38-126) U/L Serum Total Protein (6.3-8.2) g/dL Albumin (3.5-5.0) g/dL Amylase (30-110) U/L Lipase (23-300) U/L Serum HCG, Qual (NEGATIVE) Urine Color Yellow (Yellow) Urine Appearance Clear (Clear) Urine pH 6.5 (4.6-8.0) Ur Specific [place] 1.025 (1.005-1.030) Urine Protein Negative (Negative) Urine Glucose (UA) Negative (Negative) mg/dL Urine Ketones Negative (Negative) Urine Blood Large A (Negative) Urine Nitrite Negative (Negative) Urine Bilirubin Negative (Negative) Urine Urobilinogen 1.0 A (0.2) mg/dL Ur Leukocyte Esterase Negative (Negative) U Hyaline Cast (Auto) NONE SEEN (0-2) /LPF Urine Microscopic RBC >100 A (0-5) /HPF Urine Microscopic WBC 0-2 (0-5) /HPF Ur Epithelial Cells Rare (None Seen) /HPF Urine Bacteria None Seen (None Seen) /HPF Urine Culture Reflexed NO (NO) Monoscreen (NEGATIVE) Influenza Type A Ag NEGATIVE (NEGATIVE) Influenza Type B Ag NEGATIVE (NEGATIVE) RSV (PCR) NEGATIVE (NEGATIVE) SARS-CoV-2 (PCR) NEGATIVE (NEGATIVE) Group A Strep Antibody NOT DETECTED (NEGATIVE) 08/27/23 08/27/23 08/27/23 Range/Units 15:15 15:15 15:15 WBC 7.4 (4.0-10.5) x10^3/uL RBC 4.83 (4.1-5.4) x10^6/uL Hgb 12.7 (12.0-16.0) g/dL Hct 39.3 (35-47) % MCV 81.4 (78-100) fL MCH 26.3 (26-32) pg MCHC 32.3 (32-36) g/dL RDW 13.6 (11.5-14.0) % Plt Count 263 (150-450) x10^3/uL MPV 8.9 (7.5-11.0) fL Gran % 56.4 (36.0-66.0) % Immature Gran % (Auto) 0.3 (0.00-0.4) % Nucleat RBC Rel Count 0.0 (0.00-0.1) % Eos # (Auto) 0.10 (0-0.5) x10^3/uL Immature Gran # (Auto) 0.02 (0.00-0.03) x10^3u/L Absolute Lymphs (auto) 2.53 (1.0-4.6) x10^3/uL Absolute Monos (auto) 0.53 (0.0-1.3) x10^3/uL Absolute Nucleated RBC 0.00 (0.00-0.01) x10^3u/L Lymphocytes % 34.2 (24.0-44.0) % Monocytes % 7.2 (0.0-12.0) % Eosinophils % 1.4 (0.00-5.0) % Basophils % 0.5 (0.0-0.4) % Absolute Granulocytes 4.18 (1.4-6.9) x10^3/uL Basophils # 0.04 (0-0.4) x10^3/uL Sodium 138 (135-145) mmol/L Potassium 3.9 (3.5-5.1) mmol/L Chloride 109 H (98-107) mmol/L Carbon Dioxide 21 L (22-30) mmol/L Anion Gap 11.9 (5-15) MEQ/L BUN 10 (7-17) mg/dL Creatinine 0.71 (0.52-1.04) mg/dL Estimated GFR 123.2 ML/MIN Glucose 91 (74-106) mg/dL Calcium 8.9 (8.4-10.2) mg/dL Total Bilirubin 0.40 (0.2-1.3) mg/dL AST 23 (14-36) U/L ALT 23 (0-35) U/L Alkaline Phosphatase 84 (38-126) U/L Serum Total Protein 7.4 (6.3-8.2) g/dL Albumin 3.8 (3.5-5.0) g/dL Amylase 89 (30-110) U/L Lipase 335 H (23-300) U/L Serum HCG, Qual NEGATIVE (NEGATIVE) Urine Color (Yellow) Urine Appearance (Clear) Urine pH (4.6-8.0) Ur Specific [place] (1.005-1.030) Urine Protein (Negative) Urine Glucose (UA) (Negative) mg/dL Urine Ketones (Negative) Urine Blood (Negative) Urine Nitrite (Negative) Urine Bilirubin (Negative) Urine Urobilinogen (0.2) mg/dL Ur Leukocyte Esterase (Negative) U Hyaline Cast (Auto) (0-2) /LPF Urine Microscopic RBC (0-5) /HPF Urine Microscopic WBC (0-5) /HPF Ur Epithelial Cells (None Seen) /HPF Urine Bacteria (None Seen) /HPF Urine Culture Reflexed (NO) Monoscreen NEGATIVE (NEGATIVE) Influenza Type A Ag (NEGATIVE) Influenza Type B Ag (NEGATIVE) RSV (PCR) (NEGATIVE) SARS-CoV-2 (PCR) (NEGATIVE) Group A Strep Antibody (NEGATIVE) - Progress Progress: unchanged Counseled pt/family regarding: lab results, diagnosis, need for follow-up, rad results Medical Desision Making - Diagnostic Testing Diagnostic test were ordered, analyzed, and reviewed by me: Yes Radiological Interpretation: Teleradiologist Report - Departure Departure Disposition: Home Clinical Impression: Abdominal pain Condition: Stable Critical Care Time: No Referrals: SANNA CHE MD [Primary Care Provider] - Follow up/PCP as directed Instructions: Severe Abdominal Pain, Adult (DC) Additional Instructions: Follow up with private doctor tomorrow.
[2023-08-27 15:56] VITALS: PULSE 78; RESP 19
[2023-08-27] MEDS ORDERED: Sodium Chloride 0.9% 1000 ML 1,000 ML ONE (15:58)
[2023-08-27] MEDS ORDERED: Zofran 4 MG/2 ML VIAL ONE (15:58)
[2023-08-27] MEDS ORDERED: MORPHINE SULFATE 2 MG INJ ONE (15:58)
[2023-08-27] MEDS: Zofran 4 MG/2 ML VIAL IV ONE (16:00)
[2023-08-27] MEDS: MORPHINE SULFATE 2 MG INJ IV ONE (16:00)
[2023-08-27] MEDS: Sodium Chloride 0.9% 1000 ML 1,000 ML IV SCH (16:00)
[2023-08-27 16:06] LABS: Absolute Neutrophil Ct (ANC) 4.18 x10^3/uL (1.4-6.9); BASOPHIL % 0.5 % (0.0-0.4); Basophil (Absolute #) 0.04 x10^3/uL (0-0.4); Eosinophil % 1.4 % (0.00-5.0); Hematocrit 39.3 % (35-47); Hemoglobin 12.7 g/dL (12.0-16.0); IMMATURE GRAN # 0.02 x10^3u/L (0.00-0.03); IMMATURE GRAN % 0.3 % (0.00-0.4); Lymphocyte (Absolute #) 2.53 x10^3/uL (1.0-4.6); Lymphocytes % 34.2 % (24.0-44.0); Mean Cell Volume 81.4 fL (78-100); Mean Corpuscular Hemoglobin 26.3 pg (26-32); Mean Corpuscular Hgb Concent. 32.3 g/dL (32-36); Mean Platelet Volume 8.9 fL (7.5-11.0); Monocyte (Absolute #) 0.53 x10^3/uL (0.0-1.3); Monocytes % 7.2 % (0.0-12.0); Neutrophil % 56.4 % (36.0-66.0); Platelet Count 263 x10^3/uL (150-450); Red Blood Count 4.83 x10^6/uL (4.1-5.4); Red Cell Distribution Width 13.6 % (11.5-14.0); White Blood Count 7.4 x10^3/uL (4.0-10.5)
[2023-08-27 16:14] LABS: Appearance Clear (Clear); Bacteria None Seen /HPF (None Seen); Bilirubin Negative (Negative); Blood Large (Negative); Epithelial Cells Rare /HPF (None Seen); Glucose, Urine Negative (Negative); Hyaline Casts NONE SEEN /LPF (0-2); Ketones Negative (Negative); Leukocyte Esterase Negative (Negative); Nitrite Negative (Negative); Ph 6.5 (4.6-8.0); Protein,Urine Dip Negative (Negative); RBC >100 /HPF (0-5); Specific Gravity 1.025 (1.005-1.030); WBC 0-2 /HPF (0-5)
[2023-08-27 16:20] LABS: ALBUMIN 3.8 g/dL (3.5-5.0); ANION GAP 11.9 MEQ/L (5-15); BILIRUBIN,TOTAL 0.4 mg/dL (0.2-1.3); Calcium 8.9 mg/dL (8.4-10.2); Creatinine 1 0.71 mg/dL (0.52-1.04); EST GLOMERULAR FILTRATION RATE 123.2 ML/MIN; Potassium 3.9 mmol/L (3.5-5.1); Total Protein 7.4 g/dL (6.3-8.2)
[2023-08-27 16:23] LABS: HCG SERUM TEST NEGATIVE (NEGATIVE)
[2023-08-27 16:23] LABS: ADD URINE CULTURE? NO (NO)
--- NOTE | 2023-08-27 17:32 | XRAY ---
CLINICAL HISTORY: pain COMPARISON: Prior CT abdomen dated 06/29/2023 TECHNIQUE: CT scan of the abdomen and pelvis was performed without IV contrast, Coronal and sagittal reconstructive images were also obtained. One of the following dose reduction techniques were utilized for this exam: Automated exposure control, adjustment of the mA and/or kV according to patient size, use of iterative reconstruction.CTDI: 21.98 (mGy), DLP: 1411.07 (mGy-cm), FINDINGS: Lung bases are unremarkable. The liver is normal in size without focal parenchymal abnormality. The intrahepatic biliary radicals and the bile ducts are normal. The gallbladder is normal. No pericholecystic fluid collection or radio-dense calculi in the gall bladder. The spleen, pancreas, adrenal glands are unremarkable. A tiny nonobstructing stone is seen within the left kidney interpolar segment measuring approximately 3 mm in size. Otherwise, the kidneys are unremarkable. They are normal in size and shape. No calculi or hydronephrosis is seen. The ascending colon, the transverse colon, the descending colon, visualized small bowel loops are unremarkable. There is no evidence of significant enlargement of the mesenteric or retroperitoneal lymph nodes. The osseous structures in the lower rib cage and lumbar spine show no abnormality. Appendix is unremarkable. Pelvis: The urinary bladder is unremarkable. The rectosigmoid colon is unremarkable. The uterus and ovaries are grossly unremarkable. The pelvic vasculature is unremarkable. No evidence of pelvic lymphadenopathy. IMPRESSION: 1. Tiny nonobstructing left kidney stone of 3mm. 2. The rest of the abdomen is unremarkable. Electronically Signed by: Elizabeth Nguyen MD. (08/27/2023 17:28:15 EDT)
[2023-08-27 17:54] LABS: INFLUENZA A NEGATIVE (NEGATIVE); INFLUENZA B NEGATIVE (NEGATIVE); RESPIRATORY SYNCTIAL VIRUS NEGATIVE (NEGATIVE); SARS-CoV-2 Xpert Express NEGATIVE (NEGATIVE)
[2023-08-27 18:05] VITALS: BP 120/89
[2023-08-27 18:18] VITALS: O2SAT 98
== END 2023-08-27 18:23 | disposition home or self-care (01) ==
LOC: ED 14:53
DX: R10.12 Left upper quadrant pain (principal); Z79.85 Long-term (current) use of injectable non-insulin antidiabetic drugs; Z79.899 Other long term (current) drug therapy
CPT/HCPCS: 0241U; 36000; 36415; 74176; 80053; 81001; 82150; 83690; 84703; 85025; 86308; 87651; 96374; 96375; 99284; J2270; J2405

== ENCOUNTER 2024-03-31 08:49 | Emergency (ER) | payer MEDICAID ==
[2024-03-31 09:18] VITALS: TEMP 97.8
[2024-03-31 09:37] LABS: Absolute Neutrophil Ct (ANC) 3.18 x10^3/uL (1.56-6.13); BASOPHIL % 0.6 % (0.1-1.2); Basophil (Absolute #) 0.04 x10^3/uL (0.01-0.08); Eosinophil % 1.5 % (0.7-5.8); Hematocrit 40.4 % (34.1-44.9); Hemoglobin 13.1 g/dL (11.2-15.7); IMMATURE GRAN # 0.02 x10^3u/L (0.001-0.031); IMMATURE GRAN % 0.3 % (0.001-0.429); Lymphocyte (Absolute #) 2.57 x10^3/uL (1.18-3.74); Lymphocytes % 39.8 % (19.3-51.7); Mean Cell Volume 82.6 fL (79.4-94.8); Mean Corpuscular Hemoglobin 26.8 pg (25.6-32.2); Mean Corpuscular Hgb Concent. 32.4 g/dL (32.2-35.5); Mean Platelet Volume 9.5 fL (9.4-12.3); Monocyte (Absolute #) 0.55 x10^3/uL (0.24-0.86); Monocytes % 8.5 % (4.7-12.5); Neutrophil % 49.3 % (34.0-71.1); Platelet Count 262 x10^3/uL (182-369); Red Blood Count 4.89 x10^6/uL (3.93-5.22); Red Cell Distribution Width 13.8 % (11.7-14.4); White Blood Count 6.5 x10^3/uL (3.98-10.04)
--- NOTE | 2024-03-31 09:42 | ERPHSYRPT ---
- History of Present Illness Time Seen by Provider: 03/31/24 08:50 Historian: patient Exam Limitations: no limitations Patient Subjective Stated Complaint: Abdominal pain Triage Nursing Assessment: Patient ambulated back to ED and transferred self to bed. Patient A+O X3. Patient's skin pink, warm and dry. Patient complains of mid abdominal pain that goes up into the epigastric area 11/23. Patient complains of nausea, but denies vomiting or diarrhea. Abdomen soft and round with BS X 4. Physician History: 23 years old female with history of GERD not taking any medication presented to the ER after she woke up with upper abdominal pain with some radiation to the epigastric/retrosternal area. Dull aching burning sensation with associated nausea but no vomiting. Pain is mild to moderate intensity and comes in waves. No fever or chills reported. Denies any constipation or diarrhea. Allergies/Adverse Reactions: Penicillins Allergy (Verified 03/31/24 09:04) patient states she is "sensitive" Home Medications: Clonidine HCl 0.1 mg [Clonidine 0.1 mg Tablet] 0.3 mg PO HS 05/06/23 [History] Semaglutide [Ozempic] 1 mg SQ WEEKLY 05/06/23 [History] Zonisamide [Zonegran] 1 cap PO BID 05/06/23 [History] Sertraline HCl 100 mg PO HS 06/29/23 [History] Hx Tetanus, Diphtheria Vaccination/Date Given: Yes Hx Influenza Vaccination/Date Given: Yes Hx Pneumococcal Vaccination/Date Given: No Immunizations Up to Date: Yes Travel Risk - International Travel Have you traveled outside of the country in past 3 weeks: No - Emerging Infectious Disease Are you exhibiting symptoms associated with any current EIDs: No Symptoms: Abdominal Pain - Review of Systems Constitutional: No Symptoms Ears, Nose, & Throat: No Symptoms Respiratory: No Symptoms Cardiac: No Symptoms Abdominal/Gastrointestinal: Abdominal Pain, Nausea Genitourinary Symptoms: No Symptoms Musculoskeletal: No Symptoms Skin: No Symptoms Neurological: No Symptoms Psychological: No Symptoms Hematologic/Lymphatic: No Symptoms Immunological/Allergic: No Symptoms - Past Medical History Pertinent Past Medical History: Yes Neurological History: No Pertinent History ENT History: No Pertinent History Cardiac History: No Pertinent History Respiratory History: No Pertinent History Endocrine Medical History: No Pertinent History Musculoskeletal History: No Pertinent History GI Medical History: Crohns Disease, GERD History: No Pertinent History Psycho-Social History: Depression, Other Female Reproductive Disorders: No Pertinent History Other Medical History: GI specialist in [place]. ADHD. Prediabetic - Past Surgical History Past Surgical History: Yes Neuro Surgical History: No Pertinent History Cardiac: No Pertinent History Respiratory: No Pertinent History Gastrointestinal: No Pertinent History Genitourinary: No Pertinent History Musculoskeletal: No Pertinent History Female Surgical History: No Pertinent History Other Surgical History: Toe surgery - Female History Hx Last Menstrual Period: 2 weeks ago Hx Now: No - Social History Smoking Status: Former smoker Exposure to second hand smoke: No Drug Use: none Patient Lives Alone: No - Social Determinants of Health Will the patient participate in the screening: Yes Do you worry about a steady place to live?: No Do you have any problems with any of the following?: No known problems In the past 12 months,have you had to go without utilities?: No Transportation Issues: No Has anyone in your support network made you feel unsafe?: No Have you or anyone in your house had to go without enough: No - Nursing Vital Signs Nursing Vital Signs: Initial Vital Signs Temperature 97.8 F 03/31/24 09:06 Pulse Rate 65 03/31/24 09:06 Respiratory Rate 20 03/31/24 09:06 Blood Pressure 139/89 03/31/24 09:06 O2 Sat by Pulse Oximetry 98 03/31/24 09:06 Pain Scale Pain Intensity 0 - Physical Exam General Appearance: no apparent distress, alert Eye Exam: PERRL/EOMI Ears, Nose, Throat Exam: normal ENT inspection Neck Exam: normal inspection, full range of motion Respiratory Exam: normal breath sounds, lungs clear Cardiovascular Exam: regular rate/rhythm, normal heart sounds Gastrointestinal/Abdomen Exam: soft, normal bowel sounds, tenderness (Minimal tenderness in the epigastric area), No guarding, No rebound Back Exam: normal inspection, normal range of motion Extremity Exam: normal inspection, normal range of motion Neurologic Exam: alert, oriented x 3, cooperative Skin Exam: normal color SpO2 Interpretation: normal SpO2: 98 O2 Delivery: Room Air Ordered Tests: Active Orders 24 hr Category Date Time Status ABDOMEN AND PELVIS W/0 CONTRAS [CT] Stat Exams 03/31/24 10:55 Completed CBC W DIFF Stat Lab 03/31/24 09:01 Completed CMP Stat Lab 03/31/24 09:01 Completed HCG QUALITATIVE, URINE Stat Lab 03/31/24 10:30 Completed LIPASE Stat Lab 03/31/24 09:01 Completed UA W/RFX UR CULTURE Stat Lab 03/31/24 10:37 Completed Medication Summary Discontinued Medications Generic Name Dose Route Start Last Admin Trade Name Cris PRN Reason Stop Dose Admin Ketorolac Tromethamine 30 mg 03/31/24 10:55 03/31/24 11:03 Ketorolac Tromethamine 30 Mg/Ml Inj IV 03/31/24 10:56 30 mg STAT ONE Administration Ketorolac Tromethamine Confirm 03/31/24 11:01 Ketorolac Tromethamine 30 Mg/Ml Inj Administered 03/31/24 11:02 Dose 30 mg .ROUTE .STK-MED ONE Lab/Rad Data: Laboratory Result Diagrams 03/31/24 09:01 03/31/24 09:01 Laboratory Results 03/31/24 03/31/24 03/31/24 Range/Units 10:37 10:30 09:01 WBC (3.98-10.04) x10^3/uL RBC (3.93-5.22) x10^6/uL Hgb (11.2-15.7) g/dL Hct (34.1-44.9) % MCV (79.4-94.8) fL MCH (25.6-32.2) pg MCHC (32.2-35.5) g/dL RDW (11.7-14.4) % Plt Count (182-369) x10^3/uL MPV (9.4-12.3) fL Gran % (34.0-71.1) % Immature Gran % (Auto) (0.001-0.429) % Nucleat RBC Rel Count (0.00-0.2) % Eos # (Auto) (0.04-0.36) x10^3/uL Immature Gran # (Auto) (0.001-0.031) x10^3u/L Absolute Lymphs (auto) (1.18-3.74) x10^3/uL Absolute Monos (auto) (0.24-0.86) x10^3/uL Absolute Nucleated RBC (0.00-0.012) x10^3u/L Lymphocytes % (19.3-51.7) % Monocytes % (4.7-12.5) % Eosinophils % (0.7-5.8) % Basophils % (0.1-1.2) % Absolute Granulocytes (1.56-6.13) x10^3/uL Basophils # (0.01-0.08) x10^3/uL Sodium 139 (135-145) mmol/L Potassium 4.3 (3.5-5.1) mmol/L Chloride 108 H (98-107) mmol/L Carbon Dioxide 21 L (22-30) mmol/L Anion Gap 14.6 (5-15) MEQ/L BUN 17 (7-17) mg/dL Creatinine 0.83 (0.52-1.04) mg/dL Estimated GFR 102.2 ML/MIN Glucose 108 H (74-106) mg/dL Calcium 8.9 (8.4-10.2) mg/dL Total Bilirubin 0.30 (0.2-1.3) mg/dL AST 26 (14-36) U/L ALT 31 (0-35) U/L Alkaline Phosphatase 65 (38-126) U/L Serum Total Protein 7.2 (6.3-8.2) g/dL Albumin 4.1 (3.5-5.0) g/dL Lipase 114 (23-300) U/L Urine Color Yellow (Yellow) Urine Appearance Clear (Clear) Urine pH 6.5 (4.6-8.0) Ur Specific [place] 1.020 (1.005-1.030) Urine Protein Negative (Negative) Urine Glucose (UA) Negative (Negative) mg/dL Urine Ketones Negative (Negative) Urine Blood Negative (Negative) Urine Nitrite Negative (Negative) Urine Bilirubin Negative (Negative) Urine Urobilinogen 0.2 (0.2) mg/dL Ur Leukocyte Esterase Negative (Negative) U Hyaline Cast (Auto) NONE SEEN (0-2) /LPF Urine Microscopic RBC 0-2 (0-5) /HPF Urine Microscopic WBC 0-2 (0-5) /HPF Ur Epithelial Cells Few (None Seen) /HPF Urine Bacteria Rare A (None Seen) /HPF Urine Culture Reflexed NO (NO) Urine HCG, Qual NEGATIVE (NEGATIVE) 03/31/24 Range/Units 09:01 WBC 6.5 (3.98-10.04) x10^3/uL RBC 4.89 (3.93-5.22) x10^6/uL Hgb 13.1 (11.2-15.7) g/dL Hct 40.4 (34.1-44.9) % MCV 82.6 (79.4-94.8) fL MCH 26.8 (25.6-32.2) pg MCHC 32.4 (32.2-35.5) g/dL RDW 13.8 (11.7-14.4) % Plt Count 262 (182-369) x10^3/uL MPV 9.5 (9.4-12.3) fL Gran % 49.3 (34.0-71.1) % Immature Gran % (Auto) 0.3 (0.001-0.429) % Nucleat RBC Rel Count 0.0 (0.00-0.2) % Eos # (Auto) 0.10 (0.04-0.36) x10^3/uL Immature Gran # (Auto) 0.02 (0.001-0.031) x10^3u/L Absolute Lymphs (auto) 2.57 (1.18-3.74) x10^3/uL Absolute Monos (auto) 0.55 (0.24-0.86) x10^3/uL Absolute Nucleated RBC 0.00 (0.00-0.012) x10^3u/L Lymphocytes % 39.8 (19.3-51.7) % Monocytes % 8.5 (4.7-12.5) % Eosinophils % 1.5 (0.7-5.8) % Basophils % 0.6 (0.1-1.2) % Absolute Granulocytes 3.18 (1.56-6.13) x10^3/uL Basophils # 0.04 (0.01-0.08) x10^3/uL Sodium (135-145) mmol/L Potassium (3.5-5.1) mmol/L Chloride (98-107) mmol/L Carbon Dioxide (22-30) mmol/L Anion Gap (5-15) MEQ/L BUN (7-17) mg/dL Creatinine (0.52-1.04) mg/dL Estimated GFR ML/MIN Glucose (74-106) mg/dL Calcium (8.4-10.2) mg/dL Total Bilirubin (0.2-1.3) mg/dL AST (14-36) U/L ALT (0-35) U/L Alkaline Phosphatase (38-126) U/L Serum Total Protein (6.3-8.2) g/dL Albumin (3.5-5.0) g/dL Lipase (23-300) U/L Urine Color (Yellow) Urine Appearance (Clear) Urine pH (4.6-8.0) Ur Specific [place] (1.005-1.030) Urine Protein (Negative) Urine Glucose (UA) (Negative) mg/dL Urine Ketones (Negative) Urine Blood (Negative) Urine Nitrite (Negative) Urine Bilirubin (Negative) Urine Urobilinogen (0.2) mg/dL Ur Leukocyte Esterase (Negative) U Hyaline Cast (Auto) (0-2) /LPF Urine Microscopic RBC (0-5) /HPF Urine Microscopic WBC (0-5) /HPF Ur Epithelial Cells (None Seen) /HPF Urine Bacteria (None Seen) /HPF Urine Culture Reflexed (NO) Urine HCG, Qual (NEGATIVE) - Progress Progress: improved, re-examined Progress Note: 03/31/24 12:44 23 years old is evaluated in the ER for upper abdominal pain with nausea. Patient has minimal tenderness in the upper abdomen. She is given symptomatic treatment with GI cocktail Protonix with no significant relief. She is also given Toradol and feeling better on reevaluation. Workup showed normal white count, fairly unremarkable chemistries. CT abdomen pelvis without contrast showed punctate gallstones with no distended gallbladder wall or signs of acute cholecystitis. Liver enzymes are normal. Does have some element of constipation. Recommended outpatient follow-up with primary care and general surgery for further evaluation. I believe patient's symptoms are more today secondary to GERD with esophagitis and will give a prescription for tonics and Carafate to go home and outpatient follow-up. Discussed signs symptoms of worsening needing return to ER which patient/mom seem understanding. Stable for discharge. Counseled pt/family regarding: lab results, diagnosis, need for follow-up, rad results Medical Desision Making - Independent Historian Additional History obtained from: Mother - Diagnostic Testing Diagnostic test were ordered, analyzed, and reviewed by me: Yes Radiological Interpretation: Reviewed by me - Risk of complications The pt has a mod risk of morbidity or mortality based on: Need for prescription drug management - Departure Departure Disposition: Home Clinical Impression: GERD with esophagitis, Gallstone, Constipation Condition: Stable Critical Care Time: No Referrals: SANNA CHE MD [Primary Care Provider] - Follow up with PCP 1 day Instructions: Severe Abdominal Pain, Adult (DC), Acid Reflux, Adult and Adolescent ED Additional Instructions: Take Tylenol/Zofran as needed. Follow-up with primary care and general surgery for reevaluation. Return to ER for intractable abdominal pain/nausea vomiting etc. Take daily MiraLAX or stool softeners for constipation. Prescriptions: Sucralfate 1 gm [Carafate 1 GM] 1 g PO ACHS #20 tablet PANTOPRAZOLE 40 mg Tablet [Protonix 40MG Tablet] 40 mg PO QAM #30 tab Ondansetron ODT 4 MG [Zofran Odt 4 mg] 1 ea PO QIDPRN PRN #7 tablet PRN Reason: n/v
[2024-03-31 10:02] LABS: ALBUMIN 4.1 g/dL (3.5-5.0); ANION GAP 14.6 MEQ/L (5-15); BILIRUBIN,TOTAL 0.3 mg/dL (0.2-1.3); Calcium 8.9 mg/dL (8.4-10.2); Creatinine 1 0.83 mg/dL (0.52-1.04); EST GLOMERULAR FILTRATION RATE 102.2 ML/MIN; Potassium 4.3 mmol/L (3.5-5.1); Total Protein 7.2 g/dL (6.3-8.2)
[2024-03-31 10:57] LABS: HCG URINE TEST NEGATIVE (NEGATIVE)
[2024-03-31 11:01] LABS: Appearance Clear (Clear); Bacteria Rare /HPF (None Seen); Bilirubin Negative (Negative); Blood Negative (Negative); Epithelial Cells Few /HPF (None Seen); Glucose, Urine Negative (Negative); Hyaline Casts NONE SEEN /LPF (0-2); Ketones Negative (Negative); Leukocyte Esterase Negative (Negative); Nitrite Negative (Negative); Ph 6.5 (4.6-8.0); Protein,Urine Dip Negative (Negative); RBC 0-2 /HPF (0-5); Urobilinogen 0.2 mg/dL (0.2); WBC 0-2 /HPF (0-5)
[2024-03-31] MEDS ORDERED: TORAdol 30 mg Injection ONE (11:01)
[2024-03-31] MEDS: TORAdol 30 mg Injection IV ONE (11:03)
[2024-03-31 11:49] VITALS: BP 116/82
[2024-03-31 11:53] VITALS: PULSE 68; RESP 18
--- NOTE | 2024-03-31 12:25 | XRAY ---
Indication: Epigastric pain. Multiple contiguous axial images obtained through the abdomen and pelvis without contrast. Comparison: August 27, 2023 Lung bases demonstrates minimal right base dependent atelectasis. No infiltrate or effusion. Heart not enlarged. Noncontrasted stomach and bowel loops appear nonobstructed with normal appendix. Again mild diffuse scattered colonic fecal debris throughout. New punctate gallstone. Stable nonobstructing left renal punctate calculus. No free fluid/air. Remaining liver, gallbladder, pancreas, spleen, adrenal glands, kidneys, ureters, bladder, uterus, and aorta are unremarkable for noncontrast exam. Osseous structures intact. No ventral or inguinal hernias. Impression: 1. New punctate gallbladder. 2. Stable nonobstructing left renal punctate calculus. 3. Again mild diffuse fecal stasis. 4. Remaining CT abdomen/pelvis without contrast exam is again negative.
[2024-03-31 12:48] VITALS: O2SAT 98
== END 2024-03-31 13:11 | disposition home or self-care (01) ==
LOC: ED 08:49
DX: K21.00 Gastro-esophageal reflux disease with esophagitis, without bleeding (principal); K80.20 Calculus of gallbladder without cholecystitis without obstruction; K59.00 Constipation, unspecified; R11.0 Nausea; Z79.899 Other long term (current) drug therapy
CPT/HCPCS: 36415; 74176; 80053; 81001; 81025; 83690; 85025; 96372; 99284; J1885

== ENCOUNTER 2024-04-09 19:49 | Emergency (ER) | payer MEDICAID ==
[2024-04-09 20:33] VITALS: TEMP 97.8
[2024-04-09] MEDS ORDERED: Zofran 4 MG/2 ML VIAL ONE (21:04)
[2024-04-09] MEDS ORDERED: PROTONIX 40 MG IV IV ONE (21:04)
[2024-04-09] MEDS ORDERED: XYLOCAINE VISCOUS 2% 15 ML CUP ONE (21:04)
--- NOTE | 2024-04-09 21:04 | ERPHSYRPT ---
- History of Present Illness Time Seen by Provider: 04/09/24 19:50 Historian: patient, family Exam Limitations: no limitations Patient Subjective Stated Complaint: LUQ starting after dinner tonight Triage Nursing Assessment: Arrives to ER bed 4 ambulatory, a &OX3, vss. C/o LUQ abdominal pain since eating dinner. Dx with gallstones last Wednesday. Advised to f/u with Dr. Che for referral to [facility].Unable to see Dr. Che until Apr 25. Pain 7/10, comes and goes, +nausea, denies vomiting/diarrhea. Abdomen tender upon palpation. Physician History: 23 years old female with history of GERD, gallstones presented in the ER with sudden onset upper abdominal pain more in the epigastric area after she had chicken/corn prior to arrival, moderate to severe sharp with associated nausea but no vomiting or diarrhea. Patient reports pain started to improve and currently rates 5/10 intensity. Pain is more in the epigastric area at present. Denies any fever or chills. Patient was evaluated last week in this ER with a CT confirmed punctate gallstone with no signs of acute cholecystitis and normal liver enzymes and patient was recommended to have outpatient follow-up. Allergies/Adverse Reactions: Penicillins Allergy (Verified 03/31/24 09:04) patient states she is "sensitive" Home Medications: Clonidine HCl 0.1 mg [Clonidine 0.1 mg Tablet] 0.3 mg PO HS 05/06/23 [History] Semaglutide [Ozempic] 1 mg SQ WEEKLY 05/06/23 [History] Zonisamide [Zonegran] 1 cap PO BID 05/06/23 [History] Sertraline HCl 100 mg PO HS 06/29/23 [History] Hx Tetanus, Diphtheria Vaccination/Date Given: Yes Hx Influenza Vaccination/Date Given: Yes Hx Pneumococcal Vaccination/Date Given: No Travel Risk - International Travel Have you traveled outside of the country in past 3 weeks: No - Emerging Infectious Disease Are you exhibiting symptoms associated with any current EIDs: No Symptoms: Abdominal Pain - Review of Systems Constitutional: No Symptoms Ears, Nose, & Throat: No Symptoms Respiratory: No Symptoms Cardiac: No Symptoms Abdominal/Gastrointestinal: Abdominal Pain, Nausea Genitourinary Symptoms: No Symptoms Musculoskeletal: No Symptoms Skin: No Symptoms Neurological: No Symptoms Psychological: No Symptoms Endocrine: No Symptoms Hematologic/Lymphatic: No Symptoms - Past Medical History Pertinent Past Medical History: Yes Neurological History: No Pertinent History ENT History: No Pertinent History Cardiac History: No Pertinent History Respiratory History: No Pertinent History Endocrine Medical History: No Pertinent History Musculoskeletal History: No Pertinent History GI Medical History: Crohns Disease, GERD History: No Pertinent History Psycho-Social History: Depression, Other Female Reproductive Disorders: No Pertinent History Other Medical History: GI specialist in [place]. ADHD. Prediabetic - Past Surgical History Past Surgical History: Yes Neuro Surgical History: No Pertinent History Cardiac: No Pertinent History Respiratory: No Pertinent History Gastrointestinal: No Pertinent History Genitourinary: No Pertinent History Musculoskeletal: No Pertinent History Female Surgical History: No Pertinent History Other Surgical History: Toe surgery - Female History Hx Last Menstrual Period: 03/08/2024 Hx Now: No - Social History Smoking Status: Never smoker Exposure to second hand smoke: No Drug Use: none Patient Lives Alone: No - Social Determinants of Health Will the patient participate in the screening: Yes Do you worry about a steady place to live?: No Do you have any problems with any of the following?: No known problems In the past 12 months,have you had to go without utilities?: No Transportation Issues: No Has anyone in your support network made you feel unsafe?: No Have you or anyone in your house had to go without enough: No - Nursing Vital Signs Nursing Vital Signs: Initial Vital Signs Temperature 97.8 F 04/09/24 20:29 Pulse Rate 76 04/09/24 20:29 Respiratory Rate 16 04/09/24 20:29 Blood Pressure 115/62 04/09/24 20:29 O2 Sat by Pulse Oximetry 97 04/09/24 20:29 Pain Scale Pain Intensity 6 - Physical Exam General Appearance: no apparent distress, alert Ears, Nose, Throat Exam: normal ENT inspection Neck Exam: normal inspection Respiratory Exam: normal breath sounds, lungs clear Cardiovascular Exam: regular rate/rhythm, normal heart sounds Gastrointestinal/Abdomen Exam: soft, normal bowel sounds, tenderness (Minimal epigastric tenderness deep palpation) Back Exam: normal inspection, normal range of motion Extremity Exam: normal inspection, normal range of motion Neurologic Exam: alert, oriented x 3, cooperative Skin Exam: normal color SpO2 Interpretation: normal SpO2: 97 O2 Delivery: Room Air Ordered Tests: Active Orders 24 hr Category Date Time Status CBC W DIFF Stat Lab 04/09/24 21:02 Completed CMP Stat Lab 04/09/24 21:02 Completed CULTURE,URINE Stat Lab 04/09/24 21:02 Received HCG QUALITATIVE, URINE Stat Lab 04/09/24 21:02 Completed LIPASE Stat Lab 04/09/24 21:02 Completed UA W/RFX UR CULTURE Stat Lab 04/09/24 21:02 Completed Medication Summary Discontinued Medications Generic Name Dose Route Start Last Admin Trade Name Freq PRN Reason Stop Dose Admin Al Hydrox/Mg Hydrox/Simethicone Confirm 04/09/24 21:06 Mag Hydrox/Al Hydrox/Simeth 30 Ml Udcup Administered 04/09/24 21:07 Dose 30 ml .ROUTE .STK-MED ONE Lidocaine HCl Confirm 04/09/24 21:04 Lidocaine Hcl 2% Viscous 15 Ml Udcup Administered 04/09/24 21:05 Dose 15 ml .ROUTE .STK-MED ONE Magnesium Hydroxide 45 ml 04/09/24 20:47 04/09/24 21:07 Mag Hydrx/Alum Hyd/Simeth/Lido 45 Ml Bottle PO 04/09/24 20:48 45 ml STAT ONE Administration Morphine Sulfate 4 mg 04/09/24 22:10 04/09/24 22:42 Morphine Sulfate 4 Mg/Ml Injection IV 04/09/24 22:11 4 mg STAT ONE Administration Ondansetron HCl 4 mg 04/09/24 20:47 04/09/24 21:05 Ondansetron Hcl 4 Mg/2 Ml Vial IV 04/09/24 20:48 4 mg STAT ONE Administration Ondansetron HCl Confirm 04/09/24 21:04 Ondansetron Hcl 4 Mg/2 Ml Vial Administered 04/09/24 21:05 Dose 4 mg .ROUTE .STK-MED ONE Pantoprazole Sodium 40 mg 04/09/24 20:47 04/09/24 21:05 Pantoprazole 40 Mg Vial IV 04/09/24 20:48 40 mg STAT ONE Administration Pantoprazole Sodium Confirm 04/09/24 21:04 Pantoprazole 40 Mg Vial Administered 04/09/24 21:05 Dose 40 mg IV .STK-MED ONE Lab/Rad Data: Laboratory Result Diagrams 04/09/24 21:02 04/09/24 21:02 Laboratory Results 11/24/24 11/24/24 11/24/24 Range/Units 21:02 21:02 21:02 WBC 8.8 (3.98-10.04) x10^3/uL RBC 4.98 (3.93-5.22) x10^6/uL Hgb 13.2 (11.2-15.7) g/dL Hct 41.7 (34.1-44.9) % MCV 83.7 (79.4-94.8) fL MCH 26.5 (25.6-32.2) pg MCHC 31.7 L (32.2-35.5) g/dL RDW 13.6 (11.7-14.4) % Plt Count 224 (182-369) x10^3/uL MPV 9.0 L (9.4-12.3) fL Gran % 69.9 (34.0-71.1) % Immature Gran % (Auto) 0.3 (0.001-0.429) % Nucleat RBC Rel Count 0.0 (0.00-0.2) % Eos # (Auto) 0.09 (0.04-0.36) x10^3/uL Immature Gran # (Auto) 0.03 (0.001-0.031) x10^3u/L Absolute Lymphs (auto) 1.83 (1.18-3.74) x10^3/uL Absolute Monos (auto) 0.66 (0.24-0.86) x10^3/uL Absolute Nucleated RBC 0.00 (0.00-0.012) x10^3u/L Lymphocytes % 20.8 (19.3-51.7) % Monocytes % 7.5 (4.7-12.5) % Eosinophils % 1.0 (0.7-5.8) % Basophils % 0.5 (0.1-1.2) % Absolute Granulocytes 6.16 H (1.56-6.13) x10^3/uL Basophils # 0.04 (0.01-0.08) x10^3/uL Sodium 143 (135-145) mmol/L Potassium 3.5 (3.5-5.1) mmol/L Chloride 106 (98-107) mmol/L Carbon Dioxide 26 (22-30) mmol/L Anion Gap 14.5 (5-15) MEQ/L BUN 12 (7-17) mg/dL Creatinine 0.89 (0.52-1.04) mg/dL Estimated GFR 94.0 ML/MIN Glucose 107 H (74-106) mg/dL Calcium 9.7 (8.4-10.2) mg/dL Total Bilirubin 0.70 (0.2-1.3) mg/dL AST 97 H (14-36) U/L ALT 52 H (0-35) U/L Alkaline Phosphatase 89 (38-126) U/L Serum Total Protein 7.7 (6.3-8.2) g/dL Albumin 4.3 (3.5-5.0) g/dL Lipase 135 (23-300) U/L Urine Color (Yellow) Urine Appearance (Clear) Urine pH (4.6-8.0) Ur Specific [place] (1.005-1.030) Urine Protein (Negative) Urine Glucose (UA) (Negative) mg/dL Urine Ketones (Negative) Urine Blood (Negative) Urine Nitrite (Negative) Urine Bilirubin (Negative) Urine Urobilinogen (0.2) mg/dL Ur Leukocyte Esterase (Negative) U Hyaline Cast (Auto) (0-2) /LPF Urine Microscopic RBC (0-5) /HPF Urine Microscopic WBC (0-5) /HPF Ur Epithelial Cells (None Seen) /HPF Urine Bacteria (None Seen) /HPF Urine Culture Reflexed (NO) Urine HCG, Qual NEGATIVE (NEGATIVE) 04/09/24 Range/Units 21:02 WBC (3.98-10.04) x10^3/uL RBC (3.93-5.22) x10^6/uL Hgb (11.2-15.7) g/dL Hct (34.1-44.9) % MCV (79.4-94.8) fL MCH (25.6-32.2) pg MCHC (32.2-35.5) g/dL RDW (11.7-14.4) % Plt Count (182-369) x10^3/uL MPV (9.4-12.3) fL Gran % (34.0-71.1) % Immature Gran % (Auto) (0.001-0.429) % Nucleat RBC Rel Count (0.00-0.2) % Eos # (Auto) (0.04-0.36) x10^3/uL Immature Gran # (Auto) (0.001-0.031) x10^3u/L Absolute Lymphs (auto) (1.18-3.74) x10^3/uL Absolute Monos (auto) (0.24-0.86) x10^3/uL Absolute Nucleated RBC (0.00-0.012) x10^3u/L Lymphocytes % (19.3-51.7) % Monocytes % (4.7-12.5) % Eosinophils % (0.7-5.8) % Basophils % (0.1-1.2) % Absolute Granulocytes (1.56-6.13) x10^3/uL Basophils # (0.01-0.08) x10^3/uL Sodium (135-145) mmol/L Potassium (3.5-5.1) mmol/L Chloride (98-107) mmol/L Carbon Dioxide (22-30) mmol/L Anion Gap (5-15) MEQ/L BUN (7-17) mg/dL Creatinine (0.52-1.04) mg/dL Estimated GFR ML/MIN Glucose (74-106) mg/dL Calcium (8.4-10.2) mg/dL Total Bilirubin (0.2-1.3) mg/dL AST (14-36) U/L ALT (0-35) U/L Alkaline Phosphatase (38-126) U/L Serum Total Protein (6.3-8.2) g/dL Albumin (3.5-5.0) g/dL Lipase (23-300) U/L Urine Color Yellow (Yellow) Urine Appearance Cloudy A (Clear) Urine pH 6.0 (4.6-8.0) Ur Specific [place] 1.020 (1.005-1.030) Urine Protein Negative (Negative) Urine Glucose (UA) Negative (Negative) mg/dL Urine Ketones Negative (Negative) Urine Blood NHT (Negative) Urine Nitrite Negative (Negative) Urine Bilirubin Negative (Negative) Urine Urobilinogen 1.0 A (0.2) mg/dL Ur Leukocyte Esterase Negative (Negative) U Hyaline Cast (Auto) NONE SEEN (0-2) /LPF Urine Microscopic RBC 6-10 A (0-5) /HPF Urine Microscopic WBC 3-5 (0-5) /HPF Ur Epithelial Cells Few (None Seen) /HPF Urine Bacteria Moderate A (None Seen) /HPF Urine Culture Reflexed YES (NO) Urine HCG, Qual (NEGATIVE) - Progress Progress: improved Progress Note: 04/09/24 22:43 23 years old with known history of punctate gallstones who was evaluated last week in this ER presented back with sudden onset upper abdominal pain with nausea after having chicken prior to arrival. Patient has minimal tenderness in the epigastric area, negative Syed sign. Has no vomiting. She is given symptomatic treatment, on reevaluation she is feeling much better. Workup showed normal white count, chemistries with AST in 90s and ALT in 50s which is a mild increase from previous workup but has normal total bili and lipase. I do not think patient needs another CT with negative Syed sign and no other significant tenderness. I believe patient has biliary colic. I have discussed with Dr. Dan general surgeon on-call, reviewed history, workup, she will arrange follow-up in next couple of days. I have shared the results of workup with patient and family and plan of discharge with outpatient follow-up which the seem understanding. I will give her pain medication along with Zofran to go home to take as needed. Discussed with Dr.: Other (Dr. Dan general surgeon) Counseled pt/family regarding: lab results, diagnosis, need for follow-up, rad results Medical Desision Making - Discussion of managment Care discussed with:: specialist (Dr. Dan) Reviewed:: Test results Agreed on:: Treatment plan, need for follow-up Will see patient: In office - Diagnostic Testing Diagnostic test were ordered, analyzed, and reviewed by me: Yes - Risk of complications The pt has a mod risk of morbidity or mortality based on: Need for prescription drug management - Departure Departure Disposition: Home Clinical Impression: Biliary colic Condition: Stable Critical Care Time: No Referrals: SANNA CHE MD [Primary Care Provider] - Follow up with PCP 1 day ALMA DAN MD [ACTIVE STAFF] - Follow up/PCP as directed (Call for appointment for reevaluation in the morning) Instructions: Severe Abdominal Pain, Adult (DC), Gallstones - Discharge instructions Additional Instructions: Take pain medications as needed. Take low-fat diet. Follow-up with primary care and general surgery for reevaluation. Return to ER for intractable pain/vomiting/fever chills etc. Prescriptions: Hydrocodone/Acetaminophen [Hydrocodone-Acetamin 5-325 mg] 1 tab PO Q6HPRN PRN 3 Days #10 tablet MDD 4 PRN Reason: Pain Ondansetron ODT 4 MG [Zofran Odt 4 mg] 1 ea PO QIDPRN PRN #10 tablet PRN Reason: n/v
[2024-04-09 21:05] LABS: Absolute Neutrophil Ct (ANC) 6.16 x10^3/uL (1.56-6.13); BASOPHIL % 0.5 % (0.1-1.2); Basophil (Absolute #) 0.04 x10^3/uL (0.01-0.08); Eosinophil (Absolute #) 0.09 x10^3/uL (0.04-0.36); Hematocrit 41.7 % (34.1-44.9); Hemoglobin 13.2 g/dL (11.2-15.7); IMMATURE GRAN # 0.03 x10^3u/L (0.001-0.031); IMMATURE GRAN % 0.3 % (0.001-0.429); Lymphocyte (Absolute #) 1.83 x10^3/uL (1.18-3.74); Lymphocytes % 20.8 % (19.3-51.7); Mean Cell Volume 83.7 fL (79.4-94.8); Mean Corpuscular Hemoglobin 26.5 pg (25.6-32.2); Mean Corpuscular Hgb Concent. 31.7 g/dL (32.2-35.5); Monocyte (Absolute #) 0.66 x10^3/uL (0.24-0.86); Monocytes % 7.5 % (4.7-12.5); Neutrophil % 69.9 % (34.0-71.1); Platelet Count 224 x10^3/uL (182-369); Red Blood Count 4.98 x10^6/uL (3.93-5.22); Red Cell Distribution Width 13.6 % (11.7-14.4); White Blood Count 8.8 x10^3/uL (3.98-10.04)
[2024-04-09] MEDS: PROTONIX 40 MG IV IV ONE (21:05)
[2024-04-09] MEDS: Zofran 4 MG/2 ML VIAL IV ONE (21:05)
[2024-04-09] MEDS ORDERED: MAALOX ES 30 ML UNIT DOSE ONE (21:06)
[2024-04-09] MEDS: GI COCKTAIL 45 ML (Maalox/Lidocaine) PO ONE (21:07)
[2024-04-09 21:13] LABS: HCG URINE TEST NEGATIVE (NEGATIVE)
[2024-04-09 21:18] LABS: ALBUMIN 4.3 g/dL (3.5-5.0); ANION GAP 14.5 MEQ/L (5-15); Appearance Cloudy (Clear); BILIRUBIN,TOTAL 0.7 mg/dL (0.2-1.3); Bacteria Moderate /HPF (None Seen); Bilirubin Negative (Negative); Blood NHT (Negative); Calcium 9.7 mg/dL (8.4-10.2); Creatinine 1 0.89 mg/dL (0.52-1.04); Epithelial Cells Few /HPF (None Seen); Glucose, Urine Negative (Negative); Hyaline Casts NONE SEEN /LPF (0-2); Ketones Negative (Negative); Leukocyte Esterase Negative (Negative); Nitrite Negative (Negative); Potassium 3.5 mmol/L (3.5-5.1); Protein,Urine Dip Negative (Negative); Total Protein 7.7 g/dL (6.3-8.2)
[2024-04-09] MEDS: MORPHINE SULFATE 4 MG INJ IV ONE (22:42)
[2024-04-09] MEDS ORDERED: MORPHINE SULFATE 4 MG INJ ONE (22:42)
[2024-04-09 23:13] VITALS: BP 118/66; PULSE 69; RESP 18; O2SAT 98
== END 2024-04-09 23:20 | disposition home or self-care (01) ==
LOC: ED 19:49
DX: K80.50 Calculus of bile duct without cholangitis or cholecystitis without obstruction (principal); R10.13 Epigastric pain; R11.0 Nausea; Z79.891 Long term (current) use of opiate analgesic; Z79.85 Long-term (current) use of injectable non-insulin antidiabetic drugs; Z79.899 Other long term (current) drug therapy
CPT/HCPCS: 36415; 80053; 81001; 81025; 83690; 85025; 87086; 96374; 96375; 99284; J2270; J2405; A9270-GY